=== PATIENT | female | born 1960 | race Caucasian/White ===

== ENCOUNTER 2016-05-15 13:23 | Inpatient (IN) | payer MEDICAID, OTHER ==
[2016-05-15] MEDS ORDERED: Adenosine 6 MG/2 ML SDV ONE (13:46)
[2016-05-15] MEDS ORDERED: Diltiazem 25 MG/5 ML SDV ONE (14:00)
[2016-05-15] MEDS ORDERED: Diltiazem 25 MG/5 ML SDV IVPUSH ONE (14:00)
[2016-05-15] MEDS ORDERED: Lactated Ringers 1,000 ML IV ONE (14:05)
--- NOTE | 2016-05-15 14:21 | EDM.PDOC ---
ED HISTORY OF PRESENT ILLNESS - General Chief Complaint: Cardiovascular Problem Stated Complaint: DIZZY AND SWEATY/LIGHTHEADED Time Seen by Provider: 05/15/16 14:05 Source of Information: Reports: Patient History Limitations: Reports: No limitations - History of Present Illness INITIAL COMMENTS - FREE TEXT/NARRATIVE: Daisy is a 56 yo female who presents to the ER with complaints of dizziness and lightheaded. States she had a headache last night when she went to bed and when she woke up this morning she was feeling well. Had a 1/2 cup of coffee around 11:00am, which is a typical day for her. States around 1:00pm she started to get lightheaded and didn't feel right. Admits she had a heart arrythmia about 9 years ago that was similar to current episode. States while sitting in the ER she doesn't feel as lightheaded but it is still present. States she doesn't have any chest pain or palpitations in her chest. Has been otherwise feeling well. Did have the flu about a month ago but hasn't had any symptoms since. States she is under a lot of stress currently taking care of 5 grandchildren. States she doesn't take any stimulants but is trying to lose weight. Was smoking 3 packs of cigarettes per day and is now down to 3 cigarettes total in a day. States she has a poor diet and understands she needs to change this. Has cut back on her eating but still admits she isn't eating a clean diet. Symptom Onset Date: 05/15/16 Symptom Onset Time: 13:00 Timing/Duration: Reports: Improving, Intermittent Location, General: Reports: generalized - Related Data Allergies/ADRs: Allergies Allergy/AdvReac Type Severity Reaction Status Date / Time bupropion [From Wellbutrin] Allergy Rash Verified 05/15/16 13:48 codeine Allergy Chest Pain Verified 05/15/16 13:48 Penicillins Allergy Rash Verified 05/15/16 13:48 Home Meds: Home Meds Aspirin 650 mg PO DAILY 05/15/16 [History] Past Medical History Cardiovascular History: Reports: Arrhythmia, High cholesterol Respiratory History: Reports: Asthma, COPD (mild), Pneumonia, recurrent Gastrointestinal History: Reports: None Genitourinary History: Reports: None Musculoskeletal History: Reports: Osteoarthritis, RA - Past Surgical History GI Surgical History: Reports: Appendectomy, Cholecystectomy, Hernia, abdominal Female Surgical History: Reports: section Social & Family History - Tobacco Use Smoking Status *Q: Current Every Day Smoker Tobacco Use Within Last Twelve Months: Cigarettes - Alcohol Use Alcohol Use History: Yes Alcohol Use in Last Twelve Months: No - Recreational Drug Use Recreational Drug Use: No ED ROS GENERAL - Review of Systems Review Of Systems: See Below Constitutional: Reports: no symptoms HEENT: Reports: No symptoms Respiratory: Reports: no symptoms. Denies: shortness of breath, wheezing Cardiovascular: Reports: Lightheadedness. Denies: Chest pain, Blood pressure problem, Edema, Palpitations, Syncope GI/Abdominal: Reports: No symptoms : Reports: no symptoms Skin: Reports: no symptoms Neurological: Reports: dizziness, headache, weakness. Denies: seizure Psychiatric: Reports: Anxiety Hematologic/Lymphatic: Reports: no symptoms ED EXAM, GENERAL - Physical Exam Exam: See Below Exam Limited By: No limitations General Appearance: alert, anxious, mild distress Ears: normal external exam, normal canal, hearing grossly normal, normal TMs Nose: normal inspection, normal mucosa, no blood Throat/Mouth: Normal inspection, Normal lips, Normal teeth, Normal gums, Normal oropharynx, Normal voice, No airway compromise Head: atraumatic, normocephalic Neck: normal inspection, supple Respiratory/Chest: no respiratory distress, lungs clear, no accessory muscle use Cardiovascular: no edema, no JVD, no murmur, irregularly irregular GI/Abdominal: normal bowel sounds, soft, non tender, no organomegaly, no abnormal bruit, no mass Extremities: normal inspection, no pedal edema, normal capillary refill Neurological: alert, oriented, normal cognition, no motor/sensory deficits Psychiatric: normal affect, normal mood, anxious Skin Exam: Warm, Dry, Intact, Normal color, No rash EKG INTERPRETATION EKG Date: 05/15/16 Rhythm: a-fib Course - Vital Signs Last Recorded V/S: Last Vital Signs Temp 97.4 F 05/15/16 13:53 Pulse 111 H 05/15/16 14:32 Resp 20 05/15/16 13:53 BP 132/81 05/15/16 14:32 Pulse Ox 98 05/15/16 13:53 - Orders/Labs/Meds Orders: Active Orders 24 hr Category Date Time Status Patient Status Manage Transfer [TRANSFER] Routine ADT 02/22/17 14:45 Ordered Echo Comp wo Cont [US] Stat Exams 05/15/16 15:17 Ordered TSH REFLEX TO FREE T4 [CHEM] Stat Lab 05/15/16 15:17 Ordered Diltiazem [Cardizem] 100 mg Med 05/15/16 14:30 Active Sodium Chloride 0.9% [Normal Saline] 100 ml IV TITRATE Resuscitation Status Routine Resus Stat 05/15/16 14:46 Ordered Medication Orders Diltiazem HCl 100 mg/ Sodium (Chloride) 100 mls @ 5 mls/hr IV TITRATE RIA; 5 MG /HR PRN Reason: Protocol Last Admin: 05/15/16 14:32 Dose: 5 mls/hr Labs: Laboratory Tests 05/15/16 05/15/16 05/15/16 Range/Units 14:05 14:05 14:05 WBC 5.5 (5.0-10.0) 10^3/uL RBC 5.16 (4.00-5.50) 10^6/uL Hgb 14.8 (12.0-16.0) g/dL Hct 44.1 (37.0-47.0) % MCV 85.5 (82.0-94.0) fL MCH 28.7 (27.0-32.0) pg MCHC 33.6 (33.0-38.0) g/dL RDW Coeff of Dalia 13.8 (11.0-15.0) % Plt Count 317 (150-400) 10^3/uL Neut % (Auto) 42.0 (35-85) % Lymph % (Auto) 41.8 (10-55) % Dodge % (Auto) 10.0 (0-16) % Eos % (Auto) 5.3 H (0-5) % Baso % (Auto) 0.9 (0-3) % Neut # 2.30 (1.80-7.00) 10^3/uL Lymph # 2.29 (1.00-4.80) 10^3/uL Dodge # 0.55 (0.00-0.80) 10^3/uL Eos # 0.29 (0.00-0.45) 10^3/uL Baso # 0.05 10^3/uL PT 9.9 (9.7-12.3) SEC INR 0.94 (0.92-1.18) APTT 28.0 (20.0-45.0) SEC D-Dimer, Quantitative 0.51 H (0.00-0.50) Sodium 141 (136-145) mEq/L Potassium 3.8 (3.5-5.0) mEq/L Chloride 105 (98-106) mEq/L Carbon Dioxide 24 (21-32) mmol/L BUN 21 H (7-18) mg/dL Creatinine 0.9 (0.6-1.0) mg/dL Est Cr Clr Drug Dosing 63.78 mL/min Estimated GFR (MDRD) > 60 (>=60) mL/min Glucose 130 H (75-99) mg/dL Calcium 8.9 (8.4-10.1) mg/dL Total Bilirubin 0.3 (0.0-1.0) mg/dL AST 13 L (15-37) U/L ALT 21 (12-78) U/L Alkaline Phosphatase 78 (46-116) U/L Lactate Dehydrogenase 74 L (100-190) U/L Creatine Kinase 46 (21-215) U/L Troponin I < 0.017 (0.00-0.06) ng/mL Total Protein 7.1 (6.4-8.2) g/dL Albumin 3.4 (3.4-5.0) g/dL Meds: Medications Generic Name Dose Route Start Last Admin Trade Name Freq PRN Reason Stop Dose Admin Diltiazem HCl 100 mg/ Sodium 100 mls @ 5 mls/hr 05/15/16 14:30 05/15/16 14:32 Chloride IV 5 mls/hr TITRATE RIA Administration Protocol 5 MG/HR Discontinued Medications Generic Name Dose Route Start Last Admin Trade Name Freq PRN Reason Stop Dose Admin Adenosine Confirm 05/15/16 13:46 05/15/16 14:34 Adenocard Administered 05/15/16 13:47 Not Given Dose 6 mg .ROUTE .STK-MED ONE Diltiazem HCl Confirm 05/15/16 14:00 05/15/16 14:34 Diltiazem Administered 05/15/16 14:01 Not Given Dose 25 mg .ROUTE .STK-MED ONE Diltiazem HCl 5 mg 05/15/16 14:00 Diltiazem IVPUSH 05/15/16 14:01 ONETIME ONE Lactated Ringer's 1,000 mls @ 999 mls/hr 05/15/16 14:05 05/15/16 14:35 Ringers, Lactated IV 05/15/16 15:05 999 mls/hr .BOLUS ONE Administration Departure - Departure Time of Disposition: 15:00 Disposition: Admitted As Inpatient 64 Clinical Impression: Atrial fibrillation by electrocardiogram, Paroxysmal SVT (supraventricular tachycardia) Forms: ED Department Discharge - Problem List & Annotations (1) Atrial fibrillation by electrocardiogram SNOMED Code(s): 162416082 Code(s): I48.91 - UNSPECIFIED ATRIAL FIBRILLATION Status: Acute Current Visit: Yes (2) Paroxysmal SVT (supraventricular tachycardia) SNOMED Code(s): 67798920 Code(s): I47.1 - SUPRAVENTRICULAR TACHYCARDIA Status: Acute Current Visit : Yes - Problem List Review Problem List Initiated/Reviewed/Updated: Yes - My Orders Last 24 Hours: My Active Orders 05/15/16 14:30 Diltiazem [Cardizem] 100 mg Sodium Chloride 0.9% [Normal Saline] 100 ml IV TITRATE 05/15/16 14:45 Patient Status Manage Transfer [TRANSFER] Routine 05/15/16 14:46 Resuscitation Status Routine 05/15/16 15:17 Echo Comp wo Cont [US] Stat TSH REFLEX TO FREE T4 [CHEM] Stat - Assessment/Plan Admission H&P: Please use this note as an admission H&P Last 24 Hours: My Active Orders 05/15/16 14:30 Diltiazem [Cardizem] 100 mg Sodium Chloride 0.9% [Normal Saline] 100 ml IV TITRATE 05/15/16 14:45 Patient Status Manage Transfer [TRANSFER] Routine 05/15/16 14:46 Resuscitation Status Routine 05/15/16 15:17 Echo Comp wo Cont [US] Stat TSH REFLEX TO FREE T4 [CHEM] Stat Plan: Initially patient appeared to be in paroxysmal svt and would convert to NSR on her own. Elected to start Diltiazem bolus, 5mg with recurrent SVT. Started Diltiazem drip with repeat EKG which showed Atrial Fibrillation with RVR. Consulted with Dr. Alcocer and will admit to Dr. Alcocer's services under acute care. Will proceed with further workup to include echo and thyroid tests. Daisy admitted the lightheadedness had mostly subsided. She was in agreement with admission.
[2016-05-15 14:23] LABS: CHLORIDE,CL 105 mEq/L (98-106); SODIUM,NA 141 mEq/L (136-145)
[2016-05-15] MEDS ORDERED: Diltiazem 100 MG in Sodium Chloride 0.9% 100 ML IV SCH (14:30)
[2016-05-15] MEDS ORDERED: Acetaminophen 325 MG Tab PO PRN (15:37)
[2016-05-15] MEDS ORDERED: Sodium Chloride 0.9% 500 ML IV SCH (17:00)
[2016-05-15] MEDS: Enoxaparin 40 MG/0.4 ML Syringe SUBCUT SCH (17:25)
[2016-05-15] MEDS ORDERED: Digoxin 500 MCG/2 ML Amp IVPUSH SCH ×2 (20:00→21:55)
[2016-05-15] MEDS: Sodium Chloride 0.9% 500 ML ONE ×2 (20:15→22:55)
[2016-05-16] MEDS: Digoxin 500 MCG/2 ML Amp IVPUSH SCH ×4 (02:05→19:38)
[2016-05-16] MEDS: Aspirin 325 MG Tab.EC PO SCH (08:11)
[2016-05-16] MEDS: Diltiazem 180 MG Cap.CD PO SCH (09:51)
[2016-05-16] MEDS: Enoxaparin 40 MG/0.4 ML Syringe SUBCUT SCH (12:04)
[2016-05-17] MEDS: Digoxin 500 MCG/2 ML Amp IVPUSH SCH ×2 (02:02→07:55)
[2016-05-17] MEDS: Aspirin 325 MG Tab.EC PO SCH (07:55)
[2016-05-17] MEDS: Diltiazem 180 MG Cap.CD PO SCH (07:55)
[2016-05-17 08:31] VITALS: BP 107/76
--- NOTE | 2016-05-17 13:05 | PCM.PN ---
- General Info Date of Service: 05/16/16 Admission Dx/Problem (Free Text): Atrial Fib with RVR Functional Status: Reports: pain controlled, tolerating diet. Denies: ambulating - Review of Systems General: Reports: weakness. Denies: fever, fatigue HEENT: Denies: ear pain, sinus congestion, rhinitis Pulmonary: Denies: shortness of breath, cough, wheezing Cardiovascular: Reports: palpitations. Denies: chest pain, edema, lightheadedness Gastrointestinal: Denies: Abdominal pain, Constipation, Diarrhea, Nausea, Vomiting Genitourinary: Reports: no symptoms Musculoskeletal: Reports: no symptoms Skin: Reports: no symptoms Neurological: Reports: no symptoms Psychiatric: Reports: no symptoms - Patient Data Vitals - most recent: Last Vital Signs Temp 98.6 F 05/17/16 08:30 Pulse 75 05/17/16 08:30 Resp 14 05/17/16 08:30 BP 107/76 05/17/16 08:30 Pulse Ox 94 L 05/17/16 08:30 Weight - most recent: 226 lb 1.6 oz I&O - last 24 hours: Intake & Output 05/16/16 05/17/16 05/17/16 22:59 06:59 14:59 Intake Total 480 750 Output Total 1400 Balance -920 750 Med Orders - Current: Current Medications Discontinued Medications Acetaminophen (Tylenol) 650 mg PO Q4H PRN PRN Reason: Pain (Mild 1-3)/fever Adenosine (Adenocard) Confirm Administered Dose 6 mg .ROUTE .STK-MED ONE Stop: 05/15/16 13:47 Last Admin: 05/15/16 14:34 Dose: Not Given Aspirin (Ecotrin) 650 mg PO DAILY [facility] Last Admin: 05/17/16 07:55 Dose: 650 mg Digoxin (Lanoxin) 250 mcg IVPUSH Q6H [facility] Stop: 05/16/16 02:01 Last Admin: 05/15/16 20:14 Dose: 250 mcg Digoxin (Lanoxin) 250 mcg IVPUSH Q6H [facility] Stop: 05/16/16 02:01 Last Admin: 05/15/16 22:23 Dose: Not Given Digoxin (Lanoxin) 250 mcg IVPUSH Q6H [facility] Last Admin: 05/17/16 07:55 Dose: 250 mcg Diltiazem HCl (Diltiazem) Confirm Administered Dose 25 mg .ROUTE .STK-MED ONE Stop: 05/15/16 14:01 Last Admin: 05/15/16 14:34 Dose: Not Given Diltiazem HCl (Diltiazem) 5 mg IVPUSH ONETIME ONE Stop: 05/15/16 14:01 Last Admin: 05/15/16 14:00 Dose: 5 mg Diltiazem HCl (Cardizem Cd) 180 mg PO DAILY RIA Last Admin: 05/17/16 07:55 Dose: 180 mg Enoxaparin Sodium (Lovenox) 40 mg SUBCUT Q24H RIA Last Admin: 05/16/16 12:04 Dose: 40 mg Lactated Ringer's (Ringers, Lactated) 1,000 mls @ 999 mls/hr IV .BOLUS ONE Stop: 05/15/16 15:05 Last Admin: 05/15/16 14:35 Dose: 999 mls/hr Diltiazem HCl 100 mg/ Sodium (Chloride) 100 mls @ 5 mls/hr IV TITRATE RIA; 5 MG /HR PRN Reason: Protocol Last Admin: 05/15/16 14:32 Dose: 5 mls/hr Sodium Chloride (Normal Saline) Confirm Administered Dose 500 mls @ as directed .ROUTE .STK-MED ONE Stop: 05/15/16 18:42 Last Admin: 05/15/16 22:55 Dose: Not Given Sodium Chloride (Normal Saline) 500 mls @ 30 mls/hr IV ASDIRECTED RIA Last Infusion: 05/16/16 03:45 Dose: 30 mls/hr - Exam Quality Assessment: No: supplemental oxygen General: alert, oriented HEENT: Mucous membr. moist/pink Neck: supple Lungs: Clear to auscultation, Normal respiratory effort Cardiovascular: irregular rhythm, tachycardia Abdomen: bowel sounds present, soft, no tenderness Extremities: no edema Skin: warm, dry Neurological: no new focal deficit Psy/Mental Status: alert, normal affect, normal mood - Problem List & Annotations (1) Atrial fibrillation by electrocardiogram SNOMED Code(s): 427429132 Code(s): I48.91 - UNSPECIFIED ATRIAL FIBRILLATION Status: Acute - Problem List Review Problem List Initiated/Reviewed/Updated: Yes - My Orders Last 24 Hours: My Active Orders 05/17/16 08:17 Ready for Discharge [RC] PER UNIT ROUTINE - Assessment Assessment:: Atrial Fib with RVR - Plan Plan:: 05-16-2016 Patient states does have palpitations at times but not causing her any discomfort. She denies feeling lightheaded or having any headaches. Heart rate has continued to be tachycardic. Did start Digoxin last evening in addition to Cardizem IV drip. Heart rate does fluctuate at times. Converts to NSR for short periods of time. Relatively asymptomatic through this. Labs on admit all stable Will start Cardizem CD this am. Continue digoxin. Hold the drip and see how she does through the day. Will need to be set up to see Cardiology in [place] when able.
--- NOTE | 2016-05-17 15:16 | PCM.DCSUM1 ---
Discharge Summary - Hospital Course Free Text/Narrative:: Patient admitted by Chiki Correa from ER with Atrial Fib with RVR. Patient presented with palpitations to the ER. No chest pain or shortness of breath. Admitted to being lightheaded that day. Had been under a great deal of stress related to taking care of 5 grandchildren and thought the palpitations were related. She did have a heart arrhythmia 9 years ago but currently is not on any treatment for it. Cardiac work up was done in the ER. Initially felt to be SVT so was given Adenosine. Follow up EKG did show Atrial fib so Cardizem IV was given. Cardiac enzymes normal - Discharge Data Discharge Date: 05/17/16 Discharge Disposition: Home, Self-Care 01 Condition: Good - Discharge Diagnosis/Problem(s) (1) Atrial fibrillation by electrocardiogram SNOMED Code(s): 800502557 ICD Code: I48.91 - UNSPECIFIED ATRIAL FIBRILLATION Status: Acute - Patient Summary/Data Complications: Did have difficulty getting rate under control initially with just Cardizem drip so patient was started on IV Digoxin as well. Finally converted to a normal rate with atrial fib at 24 hours or so. Today has converted to a NSR. Hospital Course: Patient has been relatively asymptomatic during stay. Does have mild palpitations at times, lightheadedness has improved. Blood pressure was low at times with the Cardizem drip. As we were unable to increase her Cardizem drip over 10 mg, we did dig load her. Patient did start showing improvement of her heart rate about 18 hours after admission after start Cardizem oral and continuing the IV Digoxin. Today, she is in NSR with a rate of 72. Feels good. No further lightheadedness. No palpitations. Tolerating activity well. No complaints today other than stiffness from her RA - Patient Instructions Diet: Heart Healthy Diet Activity: As Tolerated - Discharge Plan Prescriptions/Med Rec: Diltiazem [Cardizem CD] 240 mg PO DAILY #30 cap.cd Rivaroxaban [Xarelto] 20 mg PO DAILY #30 tablet Home Medications: Home Meds Aspirin 650 mg PO DAILY 05/15/16 [History] Diltiazem [Cardizem CD] 240 mg PO DAILY #30 cap.cd 05/17/16 [Rx] Rivaroxaban [Xarelto] 20 mg PO DAILY #30 tablet 05/17/16 [Rx] Forms: ED Department Discharge Referrals: Carloz Alcocer MD [Primary Care Provider] - (Dr. Alcocer in one week ) - Discharge Summary/Plan Comment DC Time >30 min.: No Discharge Summary/Plan Comment: Patient discharged home. Will start Xarelto 20 mg daily. Cardizem CD 240 mg daily. Will arrange for a cardiology consult for the patient. Follow up with Dr. Alcocer in one week as well. - General Info Date of Service: 05/17/16 Admission Dx/Problem (Free Text: Atrial Fib with RVR Functional Status: Reports: pain controlled, tolerating diet, ambulating - Review of Systems General: Denies: fever, weakness, fatigue HEENT: Reports: no symptoms Pulmonary: Denies: shortness of breath Cardiovascular: Denies: chest pain, palpitations, lightheadedness Gastrointestinal: Denies: Abdominal pain, Nausea, Vomiting Genitourinary: Reports: no symptoms Musculoskeletal: Reports: no symptoms Skin: Reports: no symptoms - Patient Data Vitals - Most Recent: Last Vital Signs Temp 98.6 F 05/17/16 08:30 Pulse 75 05/17/16 08:30 Resp 14 05/17/16 08:30 BP 107/76 05/17/16 08:30 Pulse Ox 94 L 05/17/16 08:30 Weight - Most Recent: 226 lb 1.6 oz I&O - Last 24 hours: Intake & Output 05/17/16 05/17/16 05/17/16 06:59 14:59 22:59 Intake Total 750 Balance 750 Med Orders - Current: Current Medications Discontinued Medications Acetaminophen (Tylenol) 650 mg PO Q4H PRN PRN Reason: Pain (Mild 1-3)/fever Adenosine (Adenocard) Confirm Administered Dose 6 mg .ROUTE .STK-MED ONE Stop: 05/15/16 13:47 Last Admin: 05/15/16 14:34 Dose: Not Given Aspirin (Ecotrin) 650 mg PO DAILY [facility] Last Admin: 05/17/16 07:55 Dose: 650 mg Digoxin (Lanoxin) 250 mcg IVPUSH Q6H [facility] Stop: 05/16/16 02:01 Last Admin: 05/15/16 20:14 Dose: 250 mcg Digoxin (Lanoxin) 250 mcg IVPUSH Q6H [facility] Stop: 05/16/16 02:01 Last Admin: 05/15/16 22:23 Dose: Not Given Digoxin (Lanoxin) 250 mcg IVPUSH Q6H [facility]IA Last Admin: 05/17/16 07:55 Dose: 250 mcg Diltiazem HCl (Diltiazem) Confirm Administered Dose 25 mg .ROUTE .STK-MED ONE Stop: 05/15/16 14:01 Last Admin: 05/15/16 14:34 Dose: Not Given Diltiazem HCl (Diltiazem) 5 mg IVPUSH ONETIME ONE Stop: 05/15/16 14:01 Last Admin: 05/15/16 14:00 Dose: 5 mg Diltiazem HCl (Cardizem Cd) 180 mg PO DAILY [facility] Last Admin: 05/17/16 07:55 Dose: 180 mg Enoxaparin Sodium (Lovenox) 40 mg SUBCUT Q24H [facility] Last Admin: 05/16/16 12:04 Dose: 40 mg Lactated Ringer's (Ringers, Lactated) 1,000 mls @ 999 mls/hr IV .BOLUS ONE Stop: 05/15/16 15:05 Last Admin: 05/15/16 14:35 Dose: 999 mls/hr Diltiazem HCl 100 mg/ Sodium (Chloride) 100 mls @ 5 mls/hr IV TITRATE RIA; 5 MG /HR PRN Reason: Protocol Last Admin: 05/15/16 14:32 Dose: 5 mls/hr Sodium Chloride (Normal Saline) Confirm Administered Dose 500 mls @ as directed .ROUTE .STK-MED ONE Stop: 05/15/16 18:42 Last Admin: 05/15/16 22:55 Dose: Not Given Sodium Chloride (Normal Saline) 500 mls @ 30 mls/hr IV ASDIRECTED [facility] Last Infusion: 05/16/16 03:45 Dose: 30 mls/hr - Exam General: Reports: alert, oriented HEENT: Reports: Mucous membr. moist/pink Neck: Reports: supple Lungs: Reports: Clear to auscultation, Normal respiratory effort Cardiovascular: Reports: regular rate, regular rhythm Abdomen: Reports: bowel sounds present, soft, no tenderness *Q Meaningful Use (DIS) - VTE *Q VTE Criteria *Q: - Stroke *Q Stroke Criteria *Q: - AMI *Q AMI Criteria *Q:
== END 2016-05-17 11:00 | disposition home or self-care (01) | DRG 310 ==
LOC: CC.ED 13:23 → UNDOADMIN 14:46 → CC.MS 14:46 → UNDOADMIN 15:22 → CC.MS 15:37
PROVIDERS: ADMIT Physician Assistant Medical; ATTEND Family Medicine
DX: I48.91 Unspecified atrial fibrillation (principal); I47.1 Supraventricular tachycardia; R51 Headache; Z79.82 Long term (current) use of aspirin; F17.210 Nicotine dependence, cigarettes, uncomplicated; R42 Dizziness and giddiness; E78.00 Pure hypercholesterolemia, unspecified; J44.9 Chronic obstructive pulmonary disease, unspecified; M19.90 Unspecified osteoarthritis, unspecified site; M06.9 Rheumatoid arthritis, unspecified; F41.9 Anxiety disorder, unspecified
CPT/HCPCS: 36415; 80053; 82550; 83615; 84443; 84484; 85025; 85379; 85610; 85730; 93005; 93306; 96374; 99285; A9270-GY; J1160; J1650; J3490; J7040; J7050; J7120

== ENCOUNTER 2016-05-30 14:32 | Emergency (ER) | payer MEDICAID, OTHER ==
[2016-05-30 14:43] VITALS: BP 139/89
--- NOTE | 2016-05-30 15:15 | EDM.PDOC ---
ED HPI DIZZINESS - General Chief Complaint: Syncope Stated Complaint: DIZZY Time Seen by Provider: 05/30/16 15:00 Source of Information: Reports: Patient Exam Limitations: Reports: No limitations - History of Present Illness INITIAL COMMENTS - FREE TEXT/NARRATIVE: Patient presents to ER with complaints of dizziness. States hasn't really felt good since being in the hospital for atrial fib and starting on new medications. Relates that she doesn't sleep well due to her RA and it is even worse now. Feels so tired all the time. Was in to see Dr. Alcocer on Friday and switched from ASA and Zarelto to Coumadin. Was supposed to have her blood work done yesterday "but we were so busy at home". States she gets spells where she moves her head and feels so dizzy. Has not passed out. Feels the rooms spins at times. No chest pain. Has not noted any palpitations. Timing/Duration: Reports: Day(s): Baseline Function: Reports: ambulatory Quality: Reports: spinning Severity: moderate Improves With: Reports: laying down Worsens With: Reports: head movement Context, Dizziness: Reports: new medications Associated Symptoms: Reports: off balance Treatments SEED BUYER: Reports: Other medication(s) Other Treatments SEED BUYER: cardizem and coumadin - Related Data Allergies/ADRs: Allergies Allergy/AdvReac Type Severity Reaction Status Date / Time bupropion [From Wellbutrin] Allergy Rash Verified 05/30/16 14:43 codeine Allergy Chest Pain Verified 05/30/16 14:43 Penicillins Allergy Rash Verified 05/30/16 14:43 Home Meds: Home Meds Diltiazem [Cardizem CD] 240 mg PO DAILY #30 cap.cd 05/17/16 [Rx] Warfarin [Coumadin] 5 mg PO BEDTIME 05/30/16 [History] Past Medical History Cardiovascular History: Reports: Afib, Arrhythmia, High cholesterol Respiratory History: Reports: Asthma, COPD, Pneumonia, recurrent Gastrointestinal History: Reports: None Genitourinary History: Reports: None Musculoskeletal History: Reports: Osteoarthritis, RA Neurological History: Reports: Concussion Psychiatric History: Reports: Depression, Panic attack Endocrine/Metabolic History: Reports: Other (see below) Other Endocrine/Metabolic History: prediabetic Oncologic (Cancer) History: Reports: Cervix - Past Surgical History GI Surgical History: Reports: Appendectomy, Cholecystectomy, Hernia, abdominal Female Surgical History: Reports: section Social & Family History - Tobacco Use Smoking Status *Q: Current Some Day Smoker Years of Tobacco use: 40 Packs/Tins Daily: 0.2 - Caffeine Use Caffeine Use: Reports: None - Recreational Drug Use Recreational Drug Use: No ED ROS GENERAL - Review of Systems Review Of Systems: See Below Constitutional: Reports: malaise, weakness, fatigue. Denies: fever, chills, diaphoresis, decreased appetite HEENT: Reports: Vertigo. Denies: Ear pain, Rhinitis, Sinus problem, Throat pain , Vision change Respiratory: Denies: shortness of breath, wheezing, cough Cardiovascular: Reports: Lightheadedness. Denies: Chest pain, Edema Endocrine: Reports: fatigue GI/Abdominal: Denies: Abdominal pain, Constipation, Diarrhea, Nausea, Vomiting : Reports: no symptoms Musculoskeletal: Reports: no symptoms Skin: Reports: no symptoms Neurological: Reports: weakness ED EXAM, DIZZINESS - Physical Exam Exam: See Below Exam Limited By: No limitations General Appearance: alert, WD/WN, no apparent distress Ears: normal external exam, normal TMs Nose: normal inspection, normal mucosa, no blood Throat/Mouth: Normal inspection, Normal oropharynx Head Exam: normocephalic Vertigo: short duration Neck: normal inspection, supple, non-tender Respiratory/Chest: no respiratory distress, decreased breath sounds Cardiovascular: normal peripheral pulses, regular rate, rhythm, other (trace edema) GI/Abdominal: normal bowel sounds, soft, non tender Neurological: alert, normal mood/affect Psychiatric: normal affect, normal mood Skin Exam: Warm, Dry Course - Vital Signs Last Recorded V/S: Last Vital Signs Temp 98 F 05/30/16 14:37 Pulse 80 05/30/16 14:37 Resp 20 05/30/16 14:37 BP 139/89 05/30/16 14:37 Pulse Ox 96 05/30/16 14:37 - Orders/Labs/Meds Labs: Laboratory Tests 05/30/16 05/30/16 05/30/16 Range/Units 15:15 15:15 15:15 WBC 5.9 (5.0-10.0) 10^3/uL RBC 4.88 (4.00-5.50) 10^6/uL Hgb 14.1 (12.0-16.0) g/dL Hct 43.2 (37.0-47.0) % MCV 88.5 (82.0-94.0) fL MCH 28.9 (27.0-32.0) pg MCHC 32.6 L (33.0-38.0) g/dL RDW Coeff of Dalia 13.9 (11.0-15.0) % Plt Count 281 (150-400) 10^3/uL Neut % (Auto) 52.6 (35-85) % Lymph % (Auto) 32.8 (10-55) % [place] % (Auto) 7.6 (0-16) % Eos % (Auto) 6.3 H (0-5) % Baso % (Auto) 0.7 (0-3) % Neut # 3.11 (1.80-7.00) 10^3/uL Lymph # 1.94 (1.00-4.80) 10^3/uL [place] # 0.45 (0.00-0.80) 10^3/uL Eos # 0.37 (0.00-0.45) 10^3/uL Baso # 0.04 10^3/uL PT 12.0 (9.7-12.3) SEC INR 1.13 (0.92-1.18) Sodium 145 (136-145) mEq/L Potassium 4.0 (3.5-5.0) mEq/L Chloride 107 H (98-106) mEq/L Carbon Dioxide 30 (21-32) mmol/L BUN 15 (7-18) mg/dL Creatinine 0.7 (0.6-1.0) mg/dL Est Cr Clr Drug Dosing 82.01 mL/min Estimated GFR (MDRD) > 60 (>=60) mL/min Glucose 114 H (75-99) mg/dL Calcium 8.8 (8.4-10.1) mg/dL Lactate Dehydrogenase 89 L (100-190) U/L Creatine Kinase 39 (21-215) U/L Troponin I < 0.017 (0.00-0.06) ng/mL Urine Color (YELLOW) Urine Appearance (CLEAR) Urine pH (4.5-8.0) Ur Specific [place] (1.003-1.020) Urine Protein (NEGATIVE) mg/dL Urine Glucose (UA) (NEGATIVE) mg/dL Urine Ketones (NEGATIVE) mg/dL Urine Occult Blood (NEGATIVE) Urine Nitrite (NEGATIVE) Urine Bilirubin (NEGATIVE) Urine Urobilinogen (0.2-1.0) EU/dL Ur Leukocyte Esterase (NEGATIVE) Urine RBC (0-5) /HPF Urine WBC (0-5) /HPF Ur Epithelial Cells (NOT SEEN) /HPF Urine Bacteria (NOT SEEN) /HPF Urine Mucus (NOT SEEN) /HPF 05/30/16 Range/Units 15:15 WBC (5.0-10.0) 10^3/uL RBC (4.00-5.50) 10^6/uL Hgb (12.0-16.0) g/dL Hct (37.0-47.0) % MCV (82.0-94.0) fL MCH (27.0-32.0) pg MCHC (33.0-38.0) g/dL RDW Coeff of Dalia (11.0-15.0) % Plt Count (150-400) 10^3/uL Neut % (Auto) (35-85) % Lymph % (Auto) (10-55) % [place] % (Auto) (0-16) % Eos % (Auto) (0-5) % Baso % (Auto) (0-3) % Neut # (1.80-7.00) 10^3/uL Lymph # (1.00-4.80) 10^3/uL [place] # (0.00-0.80) 10^3/uL Eos # (0.00-0.45) 10^3/uL Baso # 10^3/uL PT (9.7-12.3) SEC INR (0.92-1.18) Sodium (136-145) mEq/L Potassium (3.5-5.0) mEq/L Chloride (98-106) mEq/L Carbon Dioxide (21-32) mmol/L BUN (7-18) mg/dL Creatinine (0.6-1.0) mg/dL Est Cr Clr Drug Dosing mL/min Estimated GFR (MDRD) (>=60) mL/min Glucose (75-99) mg/dL Calcium (8.4-10.1) mg/dL Lactate Dehydrogenase (100-190) U/L Creatine Kinase (21-215) U/L Troponin I (0.00-0.06) ng/mL Urine Color Yellow (YELLOW) Urine Appearance Clear (CLEAR) Urine pH 5.0 (4.5-8.0) Ur Specific [place] 1.021 H (1.003-1.020) Urine Protein Trace H (NEGATIVE) mg/dL Urine Glucose (UA) Negative (NEGATIVE) mg/dL Urine Ketones Negative (NEGATIVE) mg/dL Urine Occult Blood Small H (NEGATIVE) Urine Nitrite Negative (NEGATIVE) Urine Bilirubin Negative (NEGATIVE) Urine Urobilinogen 0.2 (0.2-1.0) EU/dL Ur Leukocyte Esterase Small H (NEGATIVE) Urine RBC 0-5 (0-5) /HPF Urine WBC 5-10 H (0-5) /HPF Ur Epithelial Cells Moderate H (NOT SEEN) /HPF Urine Bacteria Moderate H (NOT SEEN) /HPF Urine Mucus Few H (NOT SEEN) /HPF Departure - Departure Time of Disposition: 15:55 Disposition: Home, Self-Care 01 Condition: good Clinical Impression: UTI (urinary tract infection), Dehydration Referrals: Carloz Alcocer MD [Primary Care Provider] - Forms: ED Department Discharge Additional Instructions: 1. Rest 2. Push fluids 3. Continue same dose of Coumadin and recheck INR on Friday 4. Ceftin 250 mg twice a day for 10 days 5. Continue Cardizem 6. Follow up if any ongoing concerns.
[2016-05-30 15:35] LABS: CHLORIDE,CL 107 mEq/L (98-106); SODIUM,NA 145 mEq/L (136-145)
== END 2016-05-30 16:07 | disposition home or self-care (01) ==
LOC: CC.ED 14:32
DX: N39.0 Urinary tract infection, site not specified (principal); E86.0 Dehydration; I48.91 Unspecified atrial fibrillation; E78.00 Pure hypercholesterolemia, unspecified; J45.909 Unspecified asthma, uncomplicated; J44.9 Chronic obstructive pulmonary disease, unspecified; M19.90 Unspecified osteoarthritis, unspecified site; Z79.01 Long term (current) use of anticoagulants; F32.9 Major depressive disorder, single episode, unspecified; Z88.0 Allergy status to penicillin; Z88.5 Allergy status to narcotic agent; Z88.8 Allergy status to other drugs, medicaments and biological substances; Z90.49 Acquired absence of other specified parts of digestive tract
CPT/HCPCS: 36415; 80048; 81001; 82550; 83615; 84484; 85025; 85610; 93005; 99284

== ENCOUNTER 2018-03-04 17:13 | Emergency (ER) | payer MEDICAID ==
[2018-03-04] MEDS ORDERED: Aspirin 81 MG Tab.Chew PO ONE (17:33)
[2018-03-04] MEDS ORDERED: Diltiazem 100 MG AdvVial ONE (17:54)
[2018-03-04 17:55] LABS: CHLORIDE,CL 105 mEq/L (98-106); SODIUM,NA 141 mEq/L (136-145)
[2018-03-04] MEDS ORDERED: Diltiazem 25 MG/5 ML SDV IVPUSH ONE (18:04)
[2018-03-04] MEDS ORDERED: Diltiazem IR 30 MG Tab PO ONE (18:07)
[2018-03-04] MEDS ORDERED: Diltiazem 100 MG in Sodium Chloride 0.9% 100 ML IV SCH (18:15)
[2018-03-04] MEDS ORDERED: Sodium Chloride 0.9% 100 ML ONE (18:18)
--- NOTE | 2018-03-04 18:22 | EDM.PDOC ---
ED HPI GENERAL MEDICAL PROBLEM - General Chief Complaint: General Stated Complaint: PALPITATIONS Time Seen by Provider: 03/04/18 17:40 Source of Information: Reports: Patient History Limitations: Reports: No Limitations - History of Present Illness INITIAL COMMENTS - FREE TEXT/NARRATIVE: Patient presents with palpitations. Has not been feeling well all day today, did not sleep well last night. Heart feels like it is racing. Denies any chest pain. Has no increased shortness of breath. No nausea. Has a history of paroxysmal atrial fib. Has been dealing with hip pain so thought she wasn't sleeping well due to that but feels now more related to her heart history. Has been taking her Cardizem and Coumadin as directed. On presentation, EKG was done immediately. Did show STEMI with inferior infarct. Life flight notified. On my presentation, patient is without pain. No shortness of breath. Did fax EKG to [facility] and awaited cardiology input. Rate 160. Labs have been drawn. Onset: Today, Gradual Duration: Hour(s):, Constant Location: Reports: Generalized Severity: Mild Improves with: Reports: Rest Associated Symptoms: Reports: Malaise, Weakness. Denies: Chest Pain, Cough, Loss of Appetite, Nausea/Vomiting, Shortness of Breath - Related Data Allergies Allergy/AdvReac Type Severity Reaction Status Date / Time bupropion [From Wellbutrin] Allergy Rash Verified 03/04/18 17:52 codeine Allergy Chest Pain Verified 03/04/18 17:52 Penicillins Allergy Rash Verified 03/04/18 17:52 Home Meds: Home Meds Diltiazem [Cardizem CD] 240 mg PO DAILY #30 cap.cd 05/17/16 [Rx] Warfarin [Coumadin] 5 mg PO BEDTIME 05/30/16 [History] Past Medical History Cardiovascular History: Reports: Afib, Arrhythmia, High Cholesterol Respiratory History: Reports: Asthma, COPD, Pneumonia, Recurrent Gastrointestinal History: Reports: None Genitourinary History: Reports: None Musculoskeletal History: Reports: Osteoarthritis, RA Neurological History: Reports: Concussion Psychiatric History: Reports: Depression, Panic Attack Endocrine/Metabolic History: Reports: Other (See Below) Other Endocrine/Metabolic History: prediabetic Oncologic (Cancer) History: Reports: Cervix - Past Surgical History GI Surgical History: Reports: Appendectomy, Cholecystectomy, Hernia, Abdominal Female Surgical History: Reports: Section Social & Family History - Family History Family Medical History: Noncontributory - Tobacco Use Smoking Status *Q: Current Every Day Smoker Years of Tobacco use: 25 Packs/Tins Daily: 0.5 - Caffeine Use Caffeine Use: Reports: None - Recreational Drug Use Recreational Drug Use: No ED ROS GENERAL - Review of Systems Review Of Systems: See Below Constitutional: Reports: Malaise, Weakness, Fatigue. Denies: Fever, Chills, Diaphoresis, Decreased Appetite HEENT: Reports: No Symptoms Respiratory: Reports: Cough. Denies: Shortness of Breath Cardiovascular: Reports: Edema. Denies: Chest Pain, Lightheadedness Endocrine: Reports: Fatigue GI/Abdominal: Denies: Abdominal Pain, Nausea, Vomiting : Reports: No Symptoms Musculoskeletal: Reports: No Symptoms Skin: Reports: No Symptoms Neurological: Reports: No Symptoms ED EXAM, GENERAL - Physical Exam Exam: See Below Exam Limited By: No Limitations General Appearance: Alert, WD/WN, No Apparent Distress Ears: Normal External Exam, Normal TMs Nose: Normal Inspection, Normal Mucosa, No Blood Throat/Mouth: Normal Inspection, Normal Oropharynx Head: Normocephalic Neck: Normal Inspection, Supple, Non-Tender Respiratory/Chest: No Respiratory Distress, Lungs Clear Cardiovascular: Regular Rate, Rhythm, Tachycardia, Irregularly Irregular, Other (rhythm is variable. Is going in and out of atrial fib/flutter.) GI/Abdominal: Normal Bowel Sounds, Soft, Non-Tender Extremities: Pedal Edema (1+ edema in ankles) Neurological: Alert, Oriented Skin Exam: Warm, Dry Course - Vital Signs Last Recorded V/S: Last Vital Signs Temp 99.4 F 03/04/18 18:37 Pulse 85 03/04/18 18:37 Resp 20 03/04/18 18:37 BP 135/86 03/04/18 18:37 Pulse Ox 94 L 03/04/18 18:37 - Orders/Labs/Meds Orders: Active Orders 24 hr Category Date Time Status EKG Documentation Completion [RC] STAT Care 03/04/18 17:29 Active Chest 2V [CR] Stat Exams 03/04/18 17:27 Taken Labs: Laboratory Tests 03/04/18 03/04/18 03/04/18 Range/Units 17:27 17:35 17:35 WBC 6.9 (5.0-10.0) 10^3/uL RBC 5.34 (4.00-5.50) 10^6/uL Hgb 15.7 (12.0-16.0) g/dL Hct 47.7 H (37.0-47.0) % MCV 89.3 (82.0-94.0) fL MCH 29.4 (27.0-32.0) pg MCHC 32.9 L (33.0-38.0) g/dL RDW Coeff of Dalia 15.4 H (11.0-15.0) % Plt Count 307 (150-400) 10^3/uL Neut % (Auto) 53.5 (35-85) % Lymph % (Auto) 33.1 (10-55) % [place] % (Auto) 9.0 (0-16) % Eos % (Auto) 3.8 (0-5) % Baso % (Auto) 0.6 (0-3) % Neut # (Auto) 3.71 (1.80-7.00) 10^3/uL Lymph # (Auto) 2.29 (1.00-4.80) 10^3/uL [place] # (Auto) 0.62 (0.00-0.80) 10^3/uL Eos # (Auto) 0.26 (0.00-0.45) 10^3/uL Baso # (Auto) 0.04 10^3/uL PT 21.6 H (9.7-12.3) SEC INR 2.20 H (0.92-1.18) Sodium 141 (136-145) mEq/L Potassium 3.9 (3.5-5.0) mEq/L Chloride 105 (98-106) mEq/L Carbon Dioxide 26 (21-32) mmol/L BUN 24 H (7-18) mg/dL Creatinine 0.9 (0.6-1.0) mg/dL Est Cr Clr Drug Dosing 59.81 mL/min Estimated GFR (MDRD) > 60 (>=60) mL/min Glucose 116 H (75-99) mg/dL Calcium 8.6 (8.4-10.1) mg/dL Lactate Dehydrogenase 88 L (100-190) U/L Creatine Kinase 37 (21-215) U/L Troponin I < 0.017 (0.00-0.06) ng/mL Meds: Medications Discontinued Medications Generic Name Dose Route Start Last Admin Trade Name Domingo PRN Reason Stop Dose Admin Aspirin 324 mg 03/04/18 17:33 03/04/18 17:34 Aspirin PO 03/04/18 17:34 324 mg ONETIME ONE Administration Diltiazem HCl 10 mg 03/04/18 18:04 03/04/18 18:57 Diltiazem IVPUSH 03/04/18 18:05 Not Given ONETIME ONE Diltiazem HCl Confirm 03/04/18 17:54 03/04/18 18:40 Cardizem Administered 03/04/18 17:55 Not Given Dose 100 mg .ROUTE .STK-MED ONE Diltiazem HCl 60 mg 03/04/18 18:07 03/04/18 18:18 Cardizem PO 03/04/18 18:08 60 mg ONETIME ONE Administration Diltiazem HCl 100 mg/ Sodium 100 mls @ 5 mls/hr 03/04/18 18:15 03/04/18 18:39 Chloride IV 5 mg/hr TITRATE RIA 5 mls/hr Administration Protocol 5 MG/HR Sodium Chloride Confirm 03/04/18 18:18 03/04/18 18:40 Normal Saline Administered 03/04/18 18:19 Not Given Dose 100 mls @ as directed .ROUTE .STK-MED ONE - Re-Assessments/Exams Free Text/Narrative Re-Assessment/Exam: 03/04/18 1745 Quick exam of the patient and EKG reviewed and faxed to [facility] for review as indicates inferior [place]. 1800- spoke with Dr. Horton, kiln head house operator at [facility]. Feels EKG indicates more atrial flutter with rapid ventricular response. Troponins now back and are negative as well and she has been feeling ill throughout the day. Advised Cardizem 60 mg oral and start IV Cardizem drip per protocol. Is anticoagulated with INR at 2.20. Patient aware that life flight is enroute due to initial EKG read. Is aware of the risks of flight including worsening status, , and vehicular crash. Benefits of transfer include more definitive cardiac care as consideration for ablation to be done tomorrow. Risks of non transfer include worsening status and possible . Benefits of non transfer include care close to home. Agrees to transfer to [facility]. Also spoke with Dr. Houston, hospitalist and update on status given. 1814 Patient stable, vitals normal. 1829- Telemetry rhythm now appears more atrial fib at times. Repeat EKG confirms. Does vary back and forth between atrial fib and flutter with rate between 100-160. 1899- Life flight here, report given. Departure - Departure Time of Disposition: 19:00 Disposition: DC/Tfer to Acute Hospital 02 Condition: Fair Clinical Impression: Atrial fibrillation by electrocardiogram, Atrial flutter - Discharge Information Referrals: Carloz Alcocer MD [Primary Care Provider] - Forms: ED Department Discharge Additional Instructions: Transfer Life Flight to Dr. Houston - My Orders Last 24 Hours: My Active Orders 03/04/18 17:27 Chest 2V [CR] Stat 03/04/18 17:29 EKG Documentation Completion [RC] STAT - Assessment/Plan Last 24 Hours: My Active Orders 03/04/18 17:27 Chest 2V [CR] Stat 03/04/18 17:29 EKG Documentation Completion [RC] STAT
[2018-03-04 18:38] VITALS: BP 135/86
== END 2018-03-04 19:00 ==
LOC: CC.ED 17:13
DX: I48.91 Unspecified atrial fibrillation (principal); I48.92 Unspecified atrial flutter; Z88.0 Allergy status to penicillin; Z88.5 Allergy status to narcotic agent; F17.210 Nicotine dependence, cigarettes, uncomplicated; Z79.01 Long term (current) use of anticoagulants
CPT/HCPCS: 36415; 71046; 80048; 82550; 83615; 84484; 85025; 85610; 93005; 99285; A9270; J3490; J7050

== ENCOUNTER 2018-05-05 00:58 | Inpatient (IN) | payer MEDICAID ==
--- NOTE | 2018-05-05 01:42 | EDM.PDOC ---
ED HPI GENERAL MEDICAL PROBLEM - General Chief Complaint: Respiratory Problem Stated Complaint: "not feeling well" Time Seen by Provider: 05/05/18 01:30 Source of Information: Reports: Patient History Limitations: Reports: No Limitations - History of Present Illness INITIAL COMMENTS - FREE TEXT/NARRATIVE: Daisy is a 58 yo female who presents to the ED via private vehicle with concerns of not feeling well. She states symptoms started on Friday and she thought she was coming down with a cold. She admits she has been using her inhaler (Xopenex) frequently but recently ran out of it. She states initial symptoms were a runny nose. States symptoms have progressively worsened over the weekend to include shortness of breath, fever and body aches. She states she was around her grandchildren last week Friday, just over a week ago, and they were sick with colds. She admits she isn't sure if any relevance. She states she does smoke about a half pack per day. She has been trying to take Tylenol for the fevers and lost dose was roughly 3 1/2 hours ago. She has a history of atrial fibrillation and is currently on Coumadin. She admits she was diagnosed a few months ago and was having palpitations then, denies any palpitations presently. States she did get the influenza vaccine this year. Duration: Getting Worse Location: Reports: Chest Associated Symptoms: Reports: Cough, Fever/Chills, Headaches, Shortness of Breath. Denies: Chest Pain, Nausea/Vomiting, Rash Treatments CONTROLLED AREA CHECKER: Reports: Breathing Treatments (xopenex inhaler) - Related Data Allergies Allergy/AdvReac Type Severity Reaction Status Date / Time bupropion [From Wellbutrin] Allergy Rash Verified 05/05/18 01:01 codeine Allergy Chest Pain Verified 05/05/18 01:01 Penicillins Allergy Rash Verified 05/05/18 01:01 Home Meds: Home Meds Diltiazem [Cardizem CD] 240 mg PO DAILY #30 cap.cd 05/17/16 [Rx] Warfarin [Coumadin] 5 mg PO BEDTIME 05/30/16 [History] Furosemide [Lasix] 10 mg PO DAILY 05/05/18 [History] Levalbuterol Tartrate [Xopenex Hfa] 1 inh INH Q4H PRN 05/05/18 [History] Past Medical History Cardiovascular History: Reports: Afib, Arrhythmia, High Cholesterol Respiratory History: Reports: Asthma, COPD, Pneumonia, Recurrent Gastrointestinal History: Reports: None Genitourinary History: Reports: None Musculoskeletal History: Reports: Osteoarthritis, RA Neurological History: Reports: Concussion Psychiatric History: Reports: Depression, Panic Attack Endocrine/Metabolic History: Reports: Other (See Below) Other Endocrine/Metabolic History: prediabetic Oncologic (Cancer) History: Reports: Cervix - Past Surgical History GI Surgical History: Reports: Appendectomy, Cholecystectomy, Hernia, Abdominal Female Surgical History: Reports: Section, Hysterectomy Musculoskeletal Surgical History: Reports: Hip Replacement Other Musculoskeletal Surgeries/Procedures:: L) hip replacement Social & Family History - Family History Family Medical History: Noncontributory - Tobacco Use Smoking Status *Q: Current Every Day Smoker Years of Tobacco use: 16 Packs/Tins Daily: 0.5 - Caffeine Use Caffeine Use: Reports: None - Recreational Drug Use Recreational Drug Use: No ED ROS GENERAL - Review of Systems Review Of Systems: See Below Constitutional: Reports: Fever, Chills HEENT: Reports: Rhinitis, Throat Pain. Denies: Ear Pain Respiratory: Reports: Shortness of Breath, Wheezing, Cough Cardiovascular: Denies: Chest Pain GI/Abdominal: Reports: No Symptoms : Reports: No Symptoms Skin: Reports: No Symptoms Neurological: Reports: No Symptoms Psychiatric: Reports: Anxiety ED EXAM, GENERAL - Physical Exam Exam: See Below Exam Limited By: No Limitations General Appearance: Alert, Mild Distress Eye Exam: Bilateral Eye: Normal Inspection Ears: Normal External Exam, Normal Canal, Hearing Grossly Normal, Normal TMs Nose: Normal Inspection, Normal Mucosa, No Blood Throat/Mouth: Normal Inspection, Normal Lips, Normal Gums, Normal Oropharynx, Normal Voice, No Airway Compromise Head: Atraumatic, Normocephalic Neck: Normal Inspection, Supple Respiratory/Chest: Decreased Breath Sounds, Wheezing. No: Retractions Cardiovascular: No Edema, No Murmur, Tachycardia, Irregularly Irregular GI/Abdominal: Normal Bowel Sounds, Soft, Non-Tender, No Organomegaly Extremities: Normal Inspection, No Pedal Edema Neurological: Alert Psychiatric: Anxious EKG INTERPRETATION EKG Date: 05/05/18 Rhythm: A-Fib Rate (Beats/Min): 125 Course - Vital Signs Last Recorded V/S: Last Vital Signs Temp 102.1 F H 05/05/18 00:58 Pulse 127 H 05/05/18 00:58 Resp 22 H 05/05/18 00:58 BP 132/51 L 05/05/18 00:58 Pulse Ox 91 L 05/05/18 01:45 - Orders/Labs/Meds Orders: Active Orders 24 hr Category Date Time Status Oxygen Therapy [RC] ASDIRECTED Care 05/05/18 01:45 Active Chest 2V [CR] Stat Exams 05/05/18 01:08 Ordered CULTURE BLOOD [BC] Stat Lab 05/05/18 01:20 Received CULTURE BLOOD [BC] Stat Lab 05/05/18 01:30 Received Blood Culture x2 Reflex Set [OM.PC] Stat Oth 05/05/18 01:08 Ordered EKG 12 Lead [EK] Routine Ther 05/05/18 01:32 Ordered Labs: Laboratory Tests 05/05/18 05/05/18 05/05/18 Range/Units 01:30 01:30 01:30 WBC 9.2 (5.0-10.0) 10^3/uL RBC 5.26 (4.00-5.50) 10^6/uL Hgb 15.4 (12.0-16.0) g/dL Hct 46.7 (37.0-47.0) % MCV 88.8 (82.0-94.0) fL MCH 29.3 (27.0-32.0) pg MCHC 33.0 (33.0-38.0) g/dL RDW Coeff of Dalia 14.6 (11.0-15.0) % Plt Count 194 (150-400) 10^3/uL Neut % (Auto) 84.1 (35-85) % Lymph % (Auto) 10.3 (10-55) % [place] % (Auto) 5.5 (0-16) % Eos % (Auto) 0 (0-5) % Baso % (Auto) 0.1 (0-3) % Neut # (Auto) 7.72 H (1.80-7.00) 10^3/uL Lymph # (Auto) 0.94 L (1.00-4.80) 10^3/uL [place] # (Auto) 0.50 (0.00-0.80) 10^3/uL Eos # (Auto) 0.00 (0.00-0.45) 10^3/uL Baso # (Auto) 0.01 10^3/uL PT 22.9 H (9.7-12.3) SEC INR 2.35 H (0.92-1.18) Sodium 141 (136-145) mEq/L Potassium 3.7 (3.5-5.0) mEq/L Chloride 101 (98-106) mEq/L Carbon Dioxide 28 (21-32) mmol/L BUN 17 (7-18) mg/dL Creatinine 1.2 H (0.6-1.0) mg/dL Est Cr Clr Drug Dosing 46.67 mL/min Estimated GFR (MDRD) 46 L (>=60) mL/min Glucose 167 H D (75-99) mg/dL Calcium 8.8 (8.4-10.1) mg/dL Creatine Kinase 148 (21-215) U/L Troponin I < 0.017 (0.00-0.06) ng/mL C-Reactive Protein 10.9 H (0.2-0.8) mg/dL Departure - Departure Time of Disposition: 02:10 Disposition: Admitted As Inpatient 66 Clinical Impression: COPD exacerbation Community acquired pneumonia Qualifiers: Laterality: unspecified laterality Qualified Code(s): J18.9 - Pneumonia, unspecified organism - Discharge Information Forms: ED Department Discharge - Problem List & Annotations (1) COPD exacerbation SNOMED Code(s): 141904855 Code(s): J44.1 - CHRONIC OBSTRUCTIVE PULMONARY DISEASE W (ACUTE) EXACERBATION Status: Acute Current Visit: Yes (2) Community acquired pneumonia SNOMED Code(s): 735969318 Code(s): J18.9 - PNEUMONIA, UNSPECIFIED ORGANISM Status: Acute Current Visit: Yes Qualifiers: Laterality: unspecified laterality Qualified Code(s): J18.9 - Pneumonia, unspecified organism (3) Atrial fibrillation with RVR SNOMED Code(s): 485661926070212 Code(s): I48.91 - UNSPECIFIED ATRIAL FIBRILLATION Status: Acute Current Visit: Yes - My Orders Last 24 Hours: My Active Orders 05/05/18 01:08 Chest 2V [CR] Stat Blood Culture x2 Reflex Set [OM.PC] Stat 05/05/18 01:20 CULTURE BLOOD [BC] Stat 05/05/18 01:30 CULTURE BLOOD [BC] Stat 05/05/18 01:32 EKG 12 Lead [EK] Routine 05/05/18 01:45 Oxygen Therapy [RC] ASDIRECTED - Assessment/Plan Admission H&P: Please use this note as an admission H&P Last 24 Hours: My Active Orders 05/05/18 01:08 Chest 2V [CR] Stat Blood Culture x2 Reflex Set [OM.PC] Stat 05/05/18 01:20 CULTURE BLOOD [BC] Stat 05/05/18 01:30 CULTURE BLOOD [BC] Stat 05/05/18 01:32 EKG 12 Lead [EK] Routine 05/05/18 01:45 Oxygen Therapy [RC] ASDIRECTED Plan: Influenza was negative. CRP was elevated at 10.9. WBC high end of normal with neutrophils slightly elevated. Will admit to Dr. Monsivais services under acute care. EKG did show ongoing A. Fib with RVR at 125 bpm. Blood cultures pending. INR is 2.35. Cardiac enzymes negative. Will place on Telemetry. Will initiate IV antibiotics.
[2018-05-05 01:50] LABS: CHLORIDE,CL 101 mEq/L (98-106); SODIUM,NA 141 mEq/L (136-145)
[2018-05-05] MEDS ORDERED: Ibuprofen 200 MG Tab PO PRN (02:42)
[2018-05-05] MEDS ORDERED: Levalbuterol HCl 1.25 MG/3 ML Neb INH PRN (02:42)
[2018-05-05] MEDS ORDERED: Diltiazem 120 MG Cap.CD PO ONE ×2 (02:42→19:38)
[2018-05-05] MEDS ORDERED: Levalbuterol HCl 1.25 MG/3 ML Neb NEB PRN (02:42)
[2018-05-05] MEDS ORDERED: Levofloxacin/Dextrose 5%-Water 500 MG in Premix Bag 1 BAG IV SCH (03:00)
[2018-05-05] MEDS ORDERED: methylPREDNISolone Sodium Succinate 125 MG/2 ML SDV IVPUSH SCH (03:00)
[2018-05-05] MEDS: Sodium Chloride 0.9% 1,000 ML IV SCH ×3 (03:01→19:58)
[2018-05-05] MEDS: Acetaminophen 325 MG Tab PO PRN ×4 (03:01→23:37)
[2018-05-05] MEDS: Diltiazem 120 MG Cap.CD PO SCH (07:46)
[2018-05-05] MEDS: Furosemide 20 MG Tab PO SCH (07:47)
[2018-05-05] MEDS: Ipratropium 0.02% 0.5 MG/2.5 ML Neb Soln NEB SCH ×3 (11:49→19:58)
[2018-05-05] MEDS: Levalbuterol HCl 1.25 MG/3 ML Neb NEB SCH ×3 (11:49→20:00)
[2018-05-05] MEDS: Warfarin 5 MG Tab PO SCH (11:49)
[2018-05-05] MEDS: methylPREDNISolone Sodium Succinate 125 MG/2 ML SDV IVPUSH SCH (19:59)
[2018-05-06] MEDS: guaiFENesin 100 MG/5 ML Soln 5 ML UD Cup PO PRN ×2 (02:53→23:14)
[2018-05-06] MEDS: Sodium Chloride 0.9% 1,000 ML IV SCH (04:04)
[2018-05-06 07:22] LABS: CHLORIDE,CL 109 mEq/L (98-106); SODIUM,NA 144 mEq/L (136-145)
[2018-05-06] MEDS: Diltiazem 120 MG Cap.CD PO SCH (08:08)
[2018-05-06] MEDS: Furosemide 20 MG Tab PO SCH (08:08)
[2018-05-06] MEDS: Levalbuterol HCl 1.25 MG/3 ML Neb NEB SCH ×4 (08:09→20:06)
[2018-05-06] MEDS: Ipratropium 0.02% 0.5 MG/2.5 ML Neb Soln NEB SCH ×4 (08:09→20:05)
[2018-05-06] MEDS: Levofloxacin/Dextrose 5%-Water 500 MG in Premix Bag 1 BAG IV SCH (08:10)
[2018-05-06] MEDS: methylPREDNISolone Sodium Succinate 125 MG/2 ML SDV IVPUSH SCH ×2 (08:13→20:05)
[2018-05-06] MEDS: Acetaminophen 325 MG Tab PO PRN (09:47)
--- NOTE | 2018-05-06 18:29 | PCM.PN ---
- General Info Date of Service: 05/06/18 Admission Dx/Problem (Free Text): CAP Functional Status: Reports: Pain Controlled, Tolerating Diet. Denies: Ambulating - Review of Systems General: Reports: Weakness, Fatigue, Malaise. Denies: Fever HEENT: Reports: Rhinitis. Denies: Ear Pain, Sinus Congestion Pulmonary: Reports: Shortness of Breath, Cough, Wheezing Cardiovascular: Denies: Chest Pain, Edema, Lightheadedness Gastrointestinal: Denies: Abdominal Pain, Nausea, Vomiting Genitourinary: Reports: No Symptoms Musculoskeletal: Reports: No Symptoms Skin: Reports: No Symptoms Neurological: Reports: Headache, Weakness - Patient Data Vitals - Most Recent: Last Vital Signs Temp 98.7 F 05/06/18 16:00 Pulse 114 H 05/06/18 16:00 Resp 18 05/06/18 16:00 BP 121/70 05/06/18 16:00 Pulse Ox 92 L 05/06/18 16:00 Weight - Most Recent: 248 lb 9.6 oz I&O - Last 24 Hours: Intake & Output 05/06/18 05/06/18 05/06/18 06:59 14:59 22:59 Intake Total 1000 Balance 1000 Lab Results Last 24 Hours: Laboratory Results - last 24 hr 05/05/18 05/06/18 05/06/18 Range/Units 20:07 07:04 07:04 WBC 9.4 (5.0-10.0) 10^3/uL RBC 4.42 (4.00-5.50) 10^6/uL Hgb 13.0 (12.0-16.0) g/dL Hct 40.4 (37.0-47.0) % MCV 91.4 (82.0-94.0) fL MCH 29.4 (27.0-32.0) pg MCHC 32.2 L (33.0-38.0) g/dL RDW Coeff of Dalai 14.7 (11.0-15.0) % Plt Count 160 (150-400) 10^3/uL Neut % (Auto) 89.7 H (35-85) % Lymph % (Auto) 7.4 L (10-55) % [place] % (Auto) 2.8 (0-16) % Eos % (Auto) 0 (0-5) % Baso % (Auto) 0.1 (0-3) % Neut # (Auto) 8.45 H (1.80-7.00) 10^3/uL Lymph # (Auto) 0.70 L (1.00-4.80) 10^3/uL [place] # (Auto) 0.26 (0.00-0.80) 10^3/uL Eos # (Auto) 0.00 (0.00-0.45) 10^3/uL Baso # (Auto) 0.01 10^3/uL PT 37.2 H (9.7-12.3) SEC INR 3.96 H (0.92-1.18) Sodium (136-145) mEq/L Potassium (3.5-5.0) mEq/L Chloride (98-106) mEq/L Carbon Dioxide (21-32) mmol/L BUN (7-18) mg/dL Creatinine (0.6-1.0) mg/dL Est Cr Clr Drug Dosing mL/min Estimated GFR (MDRD) (>=60) mL/min Glucose (75-99) mg/dL POC Glucose 220 H (75-105) mg/dl Calcium (8.4-10.1) mg/dL C-Reactive Protein (0.2-0.8) mg/dL 05/06/18 05/06/18 Range/Units 07:04 07:23 WBC (5.0-10.0) 10^3/uL RBC (4.00-5.50) 10^6/uL Hgb (12.0-16.0) g/dL Hct (37.0-47.0) % MCV (82.0-94.0) fL MCH (27.0-32.0) pg MCHC (33.0-38.0) g/dL RDW Coeff of Dalia (11.0-15.0) % Plt Count (150-400) 10^3/uL Neut % (Auto) (35-85) % Lymph % (Auto) (10-55) % [place] % (Auto) (0-16) % Eos % (Auto) (0-5) % Baso % (Auto) (0-3) % Neut # (Auto) (1.80-7.00) 10^3/uL Lymph # (Auto) (1.00-4.80) 10^3/uL [place] # (Auto) (0.00-0.80) 10^3/uL Eos # (Auto) (0.00-0.45) 10^3/uL Baso # (Auto) 10^3/uL PT (9.7-12.3) SEC INR (0.92-1.18) Sodium 144 (136-145) mEq/L Potassium 4.6 D (3.5-5.0) mEq/L Chloride 109 H (98-106) mEq/L Carbon Dioxide 30 (21-32) mmol/L BUN 16 (7-18) mg/dL Creatinine 0.7 (0.6-1.0) mg/dL Est Cr Clr Drug Dosing 80.01 mL/min Estimated GFR (MDRD) > 60 (>=60) mL/min Glucose 193 H (75-99) mg/dL POC Glucose 179 H (75-105) mg/dl Calcium 8.3 L (8.4-10.1) mg/dL C-Reactive Protein 14.5 H (0.2-0.8) mg/dL Noel Results Last 24 Hours: Microbiology 05/05/18 04:38 Gram Stain - Preliminary Sputum - Expectorated Sputum Culture - Preliminary 05/05/18 01:20 Aerobic Blood Culture - Preliminary Blood - Venous NO GROWTH AFTER 1 DAY Anaerobic Blood Culture - Preliminary NO GROWTH AFTER 1 DAY 05/05/18 01:30 Aerobic Blood Culture - Preliminary Blood - Venous - Lab Draw NO GROWTH AFTER 1 DAY Anaerobic Blood Culture - Preliminary NO GROWTH AFTER 1 DAY Med Orders - Current: Current Medications Acetaminophen (Tylenol) 650 mg PO Q4H PRN PRN Reason: Pain (Mild 1-3)/fever Last Admin: 05/06/18 09:47 Dose: 650 mg Diltiazem HCl (Cardizem Cd) 240 mg PO DAILY [facility] Last Admin: 05/06/18 08:08 Dose: 240 mg Furosemide (Lasix) 10 mg PO DAILY [facility] Last Admin: 05/06/18 08:08 Dose: 10 mg Guaifenesin (Robitussin) 100 mg PO Q6H PRN PRN Reason: Cough Last Admin: 05/06/18 02:53 Dose: 100 mg Sodium Chloride (Normal Saline) 1,000 mls @ 125 mls/hr IV ASDIRECTED RIA Last Admin: 05/06/18 04:04 Dose: 125 mls/hr Levofloxacin/Dextrose 500 mg/ (Premix) 100 mls @ 100 mls/hr IV Q24H [facility] Last Admin: 05/06/18 08:10 Dose: 100 mls/hr Ibuprofen (Motrin) 400 mg PO Q6H PRN PRN Reason: Pain (mild 1-3) Ipratropium [place] (Atrovent) 0.5 mg NEB QID [facility] Last Admin: 05/06/18 16:33 Dose: 0.5 mg Levalbuterol HCl (Xopenex) 1.25 mg NEB Q4H PRN PRN Reason: Shortness of Breath Levalbuterol HCl (Xopenex) 1.25 mg NEB QID [facility] Last Admin: 05/06/18 16:33 Dose: 1.25 mg Methylprednisolone Sodium Succinate (Solu-Medrol) 62.5 mg IVPUSH BID [facility] Last Admin: 05/06/18 08:13 Dose: 62.5 mg Warfarin Sodium (Coumadin) 5 mg PO DAILY@1200 [facility] Last Admin: 05/05/18 11:49 Dose: 5 mg Discontinued Medications Diltiazem HCl (Cardizem Cd) 120 mg PO ONETIME ONE Stop: 05/05/18 02:43 Last Admin: 05/05/18 03:01 Dose: 120 mg Diltiazem HCl (Cardizem Cd) 120 mg PO ONETIME ONE Stop: 05/05/18 19:39 Last Admin: 05/05/18 19:58 Dose: 120 mg Levofloxacin/Dextrose 500 mg/ (Premix) 100 mls @ 100 mls/hr IV Q24H [facility] Last Admin: 05/05/18 03:01 Dose: 100 mls/hr Levalbuterol HCl (Xopenex) 1.25 mg INH Q4H PRN PRN Reason: Shortness of Breath Last Admin: 05/05/18 08:53 Dose: 1.25 mg Methylprednisolone Sodium Succinate (Solu-Medrol) 62.5 mg IVPUSH Q12H [facility] Last Admin: 05/05/18 03:01 Dose: 62.5 mg - Exam Quality Assessment: Supplemental Oxygen General: Alert, Oriented HEENT: Mucous Membr. Moist/[place] Neck: Supple Lungs: Decreased Breath Sounds, Wheezing Cardiovascular: Irregular Rhythm, Tachycardia GI/Abdominal Exam: Normal Bowel Sounds, Soft, Non-Tender Extremities: Normal Inspection, No Pedal Edema Skin: Warm, Dry Neurological: No New Focal Deficit - Problem List & Annotations (1) Atrial fibrillation with RVR SNOMED Code(s): 876572208272389 Code(s): I48.91 - UNSPECIFIED ATRIAL FIBRILLATION Status: Acute Priority : High Current Visit: Yes (2) COPD exacerbation SNOMED Code(s): 347175595 Code(s): J44.1 - CHRONIC OBSTRUCTIVE PULMONARY DISEASE W (ACUTE) EXACERBATION Status: Acute Priority: High Current Visit: Yes (3) Community acquired pneumonia SNOMED Code(s): 229296447 Code(s): J18.9 - PNEUMONIA, UNSPECIFIED ORGANISM Status: Ruled-out Current Visit: Yes Qualifiers: Laterality: unspecified laterality Qualified Code(s): J18.9 - Pneumonia, unspecified organism (4) Acute bronchitis SNOMED Code(s): 17204275 Code(s): J20.9 - ACUTE BRONCHITIS, UNSPECIFIED Status: Acute Current Visit: Yes - Problem List Review Problem List Initiated/Reviewed/Updated: Yes - My Orders Last 24 Hours: My Active Orders 05/06/18 02:47 guaiFENesin [Robitussin] 100 mg PO Q6H PRN - Assessment Assessment:: COPD Exacerbation Acute Bronchitis Atrial Fib with RVR Ruled out pneumonia - Plan Plan:: 05-06-2018 Patient starting to feel somewhat better. Still gets short of breath with exertion. Does feel better after Xopenex treatments but her heart rate increases with this and activity. Tolerates that well. Chest xray report shows no abnormality, sputum is normal francisco. Pneumonia ruled out. Does continue to require oxygen, 96% at 2 liters. Afebrile. WBC 9.4. CRP improved slightly to 14.5. INR has increased to 3.96. Will continue to give nebs as she does see more air exchange with these but cautiously watch her heart rate. Is currently on Cardizem 240 mg CD for this. Will attempt to wean off oxygen today. Ambulate in halls. Hold Coumadin. Continue IV Levaquin and Solu Medrol. Repeat labs in am.
[2018-05-07 07:35] LABS: CHLORIDE,CL 107 mEq/L (98-106); SODIUM,NA 146 mEq/L (136-145)
[2018-05-07] MEDS: Ipratropium 0.02% 0.5 MG/2.5 ML Neb Soln NEB SCH ×4 (08:02→20:12)
[2018-05-07] MEDS: Levalbuterol HCl 1.25 MG/3 ML Neb NEB SCH ×4 (08:02→20:12)
[2018-05-07] MEDS: Diltiazem 120 MG Cap.CD PO SCH (08:04)
[2018-05-07] MEDS: Furosemide 20 MG Tab PO SCH (08:05)
[2018-05-07] MEDS: methylPREDNISolone Sodium Succinate 125 MG/2 ML SDV IVPUSH SCH ×2 (08:06→20:10)
[2018-05-07] MEDS: Levofloxacin/Dextrose 5%-Water 500 MG in Premix Bag 1 BAG IV SCH (08:08)
[2018-05-07] MEDS: Acetaminophen 325 MG Tab PO PRN (08:11)
--- NOTE | 2018-05-07 15:12 | PCM.PN ---
- General Info Date of Service: 05/07/18 Admission Dx/Problem (Free Text): CAP Functional Status: Reports: Pain Controlled, Tolerating Diet. Denies: Ambulating - Review of Systems General: Reports: Weakness, Fatigue HEENT: Reports: Sinus Congestion, Rhinitis Pulmonary: Reports: Shortness of Breath, Cough, Sputum, Wheezing Cardiovascular: Reports: Edema. Denies: Chest Pain, Lightheadedness Gastrointestinal: Denies: Abdominal Pain, Nausea, Vomiting Genitourinary: Reports: No Symptoms Musculoskeletal: Reports: No Symptoms Skin: Reports: No Symptoms Neurological: Reports: Weakness - Patient Data Vitals - Most Recent: Last Vital Signs Temp 98.1 F 05/07/18 12:00 Pulse 134 H 05/07/18 12:00 Resp 20 05/07/18 12:00 BP 105/55 L 05/07/18 12:00 Pulse Ox 99 05/07/18 12:00 Weight - Most Recent: 248 lb 9.6 oz Lab Results Last 24 Hours: Laboratory Results - last 24 hr 05/06/18 05/07/18 05/07/18 Range/Units 20:35 07:10 07:10 WBC 10.2 H (5.0-10.0) 10^3/uL RBC 4.55 (4.00-5.50) 10^6/uL Hgb 13.3 (12.0-16.0) g/dL Hct 41.4 (37.0-47.0) % MCV 91.0 (82.0-94.0) fL MCH 29.2 (27.0-32.0) pg MCHC 32.1 L (33.0-38.0) g/dL RDW Coeff of Dalia 15.2 H (11.0-15.0) % Plt Count 220 (150-400) 10^3/uL Add Manual Diff Yes Neutrophils % (Manual) 78 (35-85) % Band Neutrophils % 8 H (0-5) % Lymphocytes % (Manual) 13 L (21-55) % Monocytes % (Manual) 1 L (2-12) % Eosinophils % (Manual) Health And Safety Manager Tear Drop Cells Health And Safety Manager PT 34.7 H (9.7-12.3) SEC INR 3.67 H (0.92-1.18) Sodium (136-145) mEq/L Potassium (3.5-5.0) mEq/L Chloride (98-106) mEq/L Carbon Dioxide (21-32) mmol/L BUN (7-18) mg/dL Creatinine (0.6-1.0) mg/dL Est Cr Clr Drug Dosing mL/min Estimated GFR (MDRD) (>=60) mL/min Glucose (75-99) mg/dL POC Glucose 216 H (75-105) mg/dl Calcium (8.4-10.1) mg/dL C-Reactive Protein (0.2-0.8) mg/dL 05/07/18 Range/Units 07:10 WBC (5.0-10.0) 10^3/uL RBC (4.00-5.50) 10^6/uL Hgb (12.0-16.0) g/dL Hct (37.0-47.0) % MCV (82.0-94.0) fL MCH (27.0-32.0) pg MCHC (33.0-38.0) g/dL RDW Coeff of Dalia (11.0-15.0) % Plt Count (150-400) 10^3/uL Add Manual Diff Neutrophils % (Manual) (35-85) % Band Neutrophils % (0-5) % Lymphocytes % (Manual) (21-55) % Monocytes % (Manual) (2-12) % Eosinophils % (Manual) Tear Drop Cells PT (9.7-12.3) SEC INR (0.92-1.18) Sodium 146 H (136-145) mEq/L Potassium 4.5 (3.5-5.0) mEq/L Chloride 107 H (98-106) mEq/L Carbon Dioxide 30 (21-32) mmol/L BUN 20 H (7-18) mg/dL Creatinine 0.7 (0.6-1.0) mg/dL Est Cr Clr Drug Dosing 80.01 mL/min Estimated GFR (MDRD) > 60 (>=60) mL/min Glucose 182 H (75-99) mg/dL POC Glucose (75-105) mg/dl Calcium 8.8 (8.4-10.1) mg/dL C-Reactive Protein 6.0 H (0.2-0.8) mg/dL Noel Results Last 24 Hours: Microbiology 05/05/18 04:38 Gram Stain - Preliminary Sputum - Expectorated Sputum Culture - Final Yeast Isolated 05/05/18 01:20 Aerobic Blood Culture - Preliminary Blood - Venous NO GROWTH AFTER 2 DAYS Anaerobic Blood Culture - Preliminary NO GROWTH AFTER 2 DAYS 05/05/18 01:30 Aerobic Blood Culture - Preliminary Blood - Venous - Lab Draw NO GROWTH AFTER 2 DAYS Anaerobic Blood Culture - Preliminary NO GROWTH AFTER 2 DAYS Med Orders - Current: Current Medications Acetaminophen (Tylenol) 650 mg PO Q4H PRN PRN Reason: Pain (Mild 1-3)/fever Last Admin: 05/07/18 08:11 Dose: 650 mg Diltiazem HCl (Cardizem Cd) 240 mg PO DAILY [facility] Last Admin: 05/07/18 08:04 Dose: 240 mg Furosemide (Lasix) 10 mg PO DAILY [facility] Last Admin: 05/07/18 08:05 Dose: 10 mg Guaifenesin (Robitussin) 100 mg PO Q6H PRN PRN Reason: Cough Last Admin: 05/06/18 23:14 Dose: 100 mg Sodium Chloride (Normal Saline) 1,000 mls @ 125 mls/hr IV ASDIRECTED [facility] Last Admin: 05/06/18 04:04 Dose: 125 mls/hr Levofloxacin/Dextrose 500 mg/ (Premix) 100 mls @ 100 mls/hr IV Q24H [facility] Last Admin: 05/07/18 08:08 Dose: 100 mls/hr Ibuprofen (Motrin) 400 mg PO Q6H PRN PRN Reason: Pain (mild 1-3) Ipratropium [place] (Atrovent) 0.5 mg NEB QID [facility] Last Admin: 05/07/18 11:54 Dose: 0.5 mg Levalbuterol HCl (Xopenex) 1.25 mg NEB Q4H PRN PRN Reason: Shortness of Breath Levalbuterol HCl (Xopenex) 1.25 mg NEB QID [facility] Last Admin: 05/07/18 11:54 Dose: 1.25 mg Methylprednisolone Sodium Succinate (Solu-Medrol) 62.5 mg IVPUSH BID [facility] Last Admin: 05/07/18 08:06 Dose: 62.5 mg Warfarin Sodium (Coumadin) 5 mg PO DAILY@1200 [facility] Last Admin: 05/05/18 11:49 Dose: 5 mg Discontinued Medications Diltiazem HCl (Cardizem Cd) 120 mg PO ONETIME ONE Stop: 05/05/18 02:43 Last Admin: 05/05/18 03:01 Dose: 120 mg Diltiazem HCl (Cardizem Cd) 120 mg PO ONETIME ONE Stop: 05/05/18 19:39 Last Admin: 05/05/18 19:58 Dose: 120 mg Levofloxacin/Dextrose 500 mg/ (Premix) 100 mls @ 100 mls/hr IV Q24H [facility] Last Admin: 05/05/18 03:01 Dose: 100 mls/hr Levalbuterol HCl (Xopenex) 1.25 mg INH Q4H PRN PRN Reason: Shortness of Breath Last Admin: 05/05/18 08:53 Dose: 1.25 mg Methylprednisolone Sodium Succinate (Solu-Medrol) 62.5 mg IVPUSH Q12H [facility] Last Admin: 05/05/18 03:01 Dose: 62.5 mg - Exam Quality Assessment: Supplemental Oxygen General: Alert, Oriented HEENT: Mucous Membr. Moist/[place] Neck: Supple Lungs: Decreased Breath Sounds, Wheezing Cardiovascular: Irregular Rhythm, Tachycardia GI/Abdominal Exam: Normal Bowel Sounds, Soft, Non-Tender Extremities: Normal Inspection, Pedal Edema (1+) Skin: Warm, Dry Neurological: No New Focal Deficit - Problem List & Annotations (1) Atrial fibrillation with RVR SNOMED Code(s): 705960441485559 Code(s): I48.91 - UNSPECIFIED ATRIAL FIBRILLATION Status: Acute Priority : High Current Visit: Yes (2) COPD exacerbation SNOMED Code(s): 677352553 Code(s): J44.1 - CHRONIC OBSTRUCTIVE PULMONARY DISEASE W (ACUTE) EXACERBATION Status: Acute Priority: High Current Visit: Yes (3) Community acquired pneumonia SNOMED Code(s): 544977350 Code(s): J18.9 - PNEUMONIA, UNSPECIFIED ORGANISM Status: Ruled-out Current Visit: Yes Qualifiers: Laterality: unspecified laterality Qualified Code(s): J18.9 - Pneumonia, unspecified organism (4) Acute bronchitis SNOMED Code(s): 35188246 Code(s): J20.9 - ACUTE BRONCHITIS, UNSPECIFIED Status: Acute Priority: High Current Visit: Yes - Problem List Review Problem List Initiated/Reviewed/Updated: Yes - Assessment Assessment:: COPD Exacerbation Acute Bronchitis Atrial Fib with RVR Ruled out pneumonia - Plan Plan:: 05-06-2018 Patient starting to feel somewhat better. Still gets short of breath with exertion. Does feel better after Xopenex treatments but her heart rate increases with this and activity. Tolerates that well. Chest xray report shows no abnormality, sputum is normal [place]. Pneumonia ruled out. Does continue to require oxygen, 96% at 2 liters. Afebrile. WBC 9.4. CRP improved slightly to 14.5. INR has increased to 3.96. Will continue to give nebs as she does see more air exchange with these but cautiously watch her heart rate. Is currently on Cardizem 240 mg CD for this. Will attempt to wean off oxygen today. Ambulate in halls. Hold Coumadin. Continue IV Levaquin and Solu Medrol. Repeat labs in am. 05-07-2018 Patient awoke this am, feeling more short of breath, wheezing. Was given Xopenex treatment that did help. Heart rate continues to increase with any activity or with breathing treatments. Did ambulate in the carias yesterday but got very short of breath, oxygen sats dropped to 87%. Was placed back on oxygen after. Has been afebrile. WBC now 10.2. CRP has improved to 6.0. INR 3.67. Will continue to give nebs, Levaquin and Steroids. Continue to ambulate as able. If able to wean off oxygen and tolerates activity, will potentially discharge home tomorrow.
[2018-05-08] MEDS: methylPREDNISolone Sodium Succinate 125 MG/2 ML SDV IVPUSH SCH (07:46)
[2018-05-08] MEDS: Ipratropium 0.02% 0.5 MG/2.5 ML Neb Soln NEB SCH ×4 (07:46→19:33)
[2018-05-08] MEDS: Levalbuterol HCl 1.25 MG/3 ML Neb NEB SCH ×4 (07:46→19:33)
[2018-05-08] MEDS: Diltiazem 120 MG Cap.CD PO SCH (07:47)
[2018-05-08] MEDS: Furosemide 20 MG Tab PO SCH (07:48)
[2018-05-08] MEDS: Levofloxacin/Dextrose 5%-Water 500 MG in Premix Bag 1 BAG IV SCH (07:54)
[2018-05-08] MEDS ORDERED: Diltiazem 120 MG Cap.CD PO ONE (08:21)
[2018-05-08] MEDS: Warfarin 5 MG Tab PO SCH (11:32)
--- NOTE | 2018-05-08 16:12 | PCM.PN ---
- General Info Date of Service: 05/08/18 Admission Dx/Problem (Free Text): CAP Functional Status: Reports: Pain Controlled, Tolerating Diet. Denies: Ambulating - Review of Systems General: Reports: Weakness, Fatigue. Denies: Fever HEENT: Reports: Sinus Congestion, Rhinitis Pulmonary: Reports: Shortness of Breath, Cough, Wheezing Cardiovascular: Reports: Edema. Denies: Chest Pain, Lightheadedness Gastrointestinal: Denies: Abdominal Pain, Nausea, Vomiting Genitourinary: Reports: No Symptoms Musculoskeletal: Reports: No Symptoms Skin: Reports: No Symptoms Neurological: Reports: Weakness. Denies: Dizziness - Patient Data Vitals - Most Recent: Last Vital Signs Temp 98.6 F 05/08/18 12:00 Pulse 150 H 05/08/18 08:43 Resp 20 05/08/18 12:00 BP 133/98 H 05/08/18 12:00 Pulse Ox 96 05/08/18 12:00 Weight - Most Recent: 248 lb 9.6 oz Lab Results Last 24 Hours: Laboratory Results - last 24 hr 05/07/18 05/08/18 05/08/18 Range/Units 20:53 06:43 07:00 PT 25.3 H (9.7-12.3) SEC INR 2.61 H (0.92-1.18) POC Glucose 259 H (75-105) mg/dl C-Reactive Protein 2.7 H (0.2-0.8) mg/dL 05/08/18 Range/Units 07:50 PT (9.7-12.3) SEC INR (0.92-1.18) POC Glucose 197 H (75-105) mg/dl C-Reactive Protein (0.2-0.8) mg/dL Noel Results Last 24 Hours: Microbiology 05/05/18 01:20 Aerobic Blood Culture - Preliminary Blood - Venous NO GROWTH AFTER 3 DAYS Anaerobic Blood Culture - Preliminary NO GROWTH AFTER 3 DAYS 05/05/18 01:30 Aerobic Blood Culture - Preliminary Blood - Venous - Lab Draw NO GROWTH AFTER 3 DAYS Anaerobic Blood Culture - Preliminary NO GROWTH AFTER 3 DAYS Med Orders - Current: Current Medications Acetaminophen (Tylenol) 650 mg PO Q4H PRN PRN Reason: Pain (Mild 1-3)/fever Last Admin: 05/07/18 08:11 Dose: 650 mg Diltiazem HCl (Cardizem Cd) 360 mg PO DAILY [facility] Furosemide (Lasix) 10 mg PO DAILY [facility] Last Admin: 05/08/18 07:48 Dose: 10 mg Guaifenesin (Robitussin) 100 mg PO Q6H PRN PRN Reason: Cough Last Admin: 05/06/18 23:14 Dose: 100 mg Levofloxacin/Dextrose 500 mg/ (Premix) 100 mls @ 100 mls/hr IV Q24H [facility] Last Admin: 05/08/18 07:54 Dose: 100 mls/hr Ibuprofen (Motrin) 400 mg PO Q6H PRN PRN Reason: Pain (mild 1-3) Ipratropium [place] (Atrovent) 0.5 mg NEB QID [facility] Last Admin: 05/08/18 11:32 Dose: 0.5 mg Levalbuterol HCl (Xopenex) 1.25 mg NEB QID [facility] Last Admin: 05/08/18 11:32 Dose: 1.25 mg Warfarin Sodium (Coumadin) 5 mg PO DAILY@1200 [facility] Last Admin: 05/08/18 11:32 Dose: 5 mg Discontinued Medications Diltiazem HCl (Cardizem Cd) 120 mg PO ONETIME ONE Stop: 05/05/18 02:43 Last Admin: 05/05/18 03:01 Dose: 120 mg Diltiazem HCl (Cardizem Cd) 240 mg PO DAILY [facility] Last Admin: 05/08/18 07:47 Dose: 240 mg Diltiazem HCl (Cardizem Cd) 120 mg PO ONETIME ONE Stop: 05/05/18 19:39 Last Admin: 05/05/18 19:58 Dose: 120 mg Diltiazem HCl (Cardizem Cd) 120 mg PO ONETIME ONE Stop: 05/08/18 08:22 Last Admin: 05/08/18 08:43 Dose: 120 mg Levofloxacin/Dextrose 500 mg/ (Premix) 100 mls @ 100 mls/hr IV Q24H [facility] Last Admin: 05/05/18 03:01 Dose: 100 mls/hr Sodium Chloride (Normal Saline) 1,000 mls @ 125 mls/hr IV ASDIRECTED [facility] Last Admin: 05/06/18 04:04 Dose: 125 mls/hr Levalbuterol HCl (Xopenex) 1.25 mg NEB Q4H PRN PRN Reason: Shortness of Breath Levalbuterol HCl (Xopenex) 1.25 mg INH Q4H PRN PRN Reason: Shortness of Breath Last Admin: 05/05/18 08:53 Dose: 1.25 mg Methylprednisolone Sodium Succinate (Solu-Medrol) 62.5 mg IVPUSH Q12H [facility] Last Admin: 05/05/18 03:01 Dose: 62.5 mg Methylprednisolone Sodium Succinate (Solu-Medrol) 62.5 mg IVPUSH BID [facility] Last Admin: 05/08/18 07:46 Dose: 62.5 mg - Exam Quality Assessment: Supplemental Oxygen (patient was able to be weaned off her oxygen yesterday but asked for it during the night as she states she feels better when she is trying to sleep with it on. ) General: Alert, Oriented HEENT: Mucous Membr. Moist/[place] Neck: Supple Lungs: Decreased Breath Sounds, Wheezing Cardiovascular: Tachycardia GI/Abdominal Exam: Normal Bowel Sounds, Soft Extremities: Normal Inspection, Pedal Edema (trace) Skin: Warm, Dry Neurological: No New Focal Deficit - Problem List & Annotations (1) Atrial fibrillation with RVR SNOMED Code(s): 456416636090442 Code(s): I48.91 - UNSPECIFIED ATRIAL FIBRILLATION Status: Acute Priority : High Current Visit: Yes (2) COPD exacerbation SNOMED Code(s): 565949300 Code(s): J44.1 - CHRONIC OBSTRUCTIVE PULMONARY DISEASE W (ACUTE) EXACERBATION Status: Acute Priority: High Current Visit: Yes (3) Community acquired pneumonia SNOMED Code(s): 574615537 Code(s): J18.9 - PNEUMONIA, UNSPECIFIED ORGANISM Status: Ruled-out Current Visit: Yes Qualifiers: Laterality: unspecified laterality Qualified Code(s): J18.9 - Pneumonia, unspecified organism (4) Acute bronchitis SNOMED Code(s): 61194120 Code(s): J20.9 - ACUTE BRONCHITIS, UNSPECIFIED Status: Acute Priority: High Current Visit: Yes - Problem List Review Problem List Initiated/Reviewed/Updated: Yes - My Orders Last 24 Hours: My Active Orders 05/09/18 08:00 Diltiazem [Cardizem CD] 360 mg PO DAILY - Assessment Assessment:: COPD Exacerbation Acute Bronchitis Atrial Fib with RVR Ruled out pneumonia - Plan Plan:: 05-06-2018 Patient starting to feel somewhat better. Still gets short of breath with exertion. Does feel better after Xopenex treatments but her heart rate increases with this and activity. Tolerates that well. Chest xray report shows no abnormality, sputum is normal [place]. Pneumonia ruled out. Does continue to require oxygen, 96% at 2 liters. Afebrile. WBC 9.4. CRP improved slightly to 14.5. INR has increased to 3.96. Will continue to give nebs as she does see more air exchange with these but cautiously watch her heart rate. Is currently on Cardizem 240 mg CD for this. Will attempt to wean off oxygen today. Ambulate in halls. Hold Coumadin. Continue IV Levaquin and Solu Medrol. Repeat labs in am. 05-07-2018 Patient awoke this am, feeling more short of breath, wheezing. Was given Xopenex treatment that did help. Heart rate continues to increase with any activity or with breathing treatments. Did ambulate in the carias yesterday but got very short of breath, oxygen sats dropped to 87%. Was placed back on oxygen after. Has been afebrile. WBC now 10.2. CRP has improved to 6.0. INR 3.67. Will continue to give nebs, Levaquin and Steroids. Continue to ambulate as able. If able to wean off oxygen and tolerates activity, will potentially discharge home tomorrow. 05-08-2018 Patient continues to complain of shortness of breath. Was up and ambulating last evening and did tolerate better. Oxygen sats were 92% on room air. Tolerate a shower. Does still have notable tachycardia, worsens with nebs, steroids and activity. Did request oxygen during the night, states she does better as she feels worse with lying down, especially if lying on right side. Oxygen was started on 1 liter. CRP is improving, down to 2.7 today. Will stop the IV steroids. Increase Cardizem to 360 mg daily. Will obtain sleep study after discharge due to increased shortness of breath during the night and history of snoring. Does need to continue ambulating as she is complaining of more weakness today. Probable discharge home tomorrow.
[2018-05-09] MEDS ORDERED: Diltiazem 120 MG Cap.CD PO SCH (08:00)
[2018-05-09] MEDS: Levalbuterol HCl 1.25 MG/3 ML Neb NEB SCH ×2 (08:07→11:44)
[2018-05-09] MEDS: Furosemide 20 MG Tab PO SCH (08:08)
[2018-05-09] MEDS: Ipratropium 0.02% 0.5 MG/2.5 ML Neb Soln NEB SCH ×2 (08:09→11:44)
[2018-05-09] MEDS: Levofloxacin/Dextrose 5%-Water 500 MG in Premix Bag 1 BAG IV SCH (08:10)
[2018-05-09 08:11] VITALS: BP 122/79
[2018-05-09] MEDS: Warfarin 5 MG Tab PO SCH (11:44)
--- NOTE | 2018-05-10 20:53 | PCM.DCSUM1 ---
Discharge Summary - Hospital Course Free Text/Narrative:: Patient is a 58 yo female who presents to the ED via private vehicle with concerns of not feeling well. She states symptoms started on Friday and she thought she was coming down with a cold. She admits she has been using her inhaler (Xopenex) frequently but recently ran out of it. Has had increased sinus congestion, shortness of breath, fever and body aches. had noted that her chest was tight, was wheezing. Was exposed to to URI from her [id number] last week. Does continue to smoke 1/2 a pack of cigarettes per day. Does have a history of atrial fib, rapid at times. Currently on Coumadin. Chest xray in ER concerning for infiltrate. WBC stable at 9.2, CRP 10.9. Creatinine 1.2. Admitted and started on Solu Medrol, Rocephin and Zithromax. Xopenex nebs held due to ventricular rate in the 120s to 130s. Diagnosis: Stroke: No Modified [place] Scale: No Symptoms at All Modified [place] Scale Score: 0 - Discharge Data Discharge Date: 05/09/18 Discharge Disposition: Home, Self-Care 01 Condition: Fair - Discharge Diagnosis/Problem(s) (1) Atrial fibrillation with RVR SNOMED Code(s): 165750383906520 ICD Code: I48.91 - UNSPECIFIED ATRIAL FIBRILLATION Status: Acute Priority : High (2) COPD exacerbation SNOMED Code(s): 277781465 ICD Code: J44.1 - CHRONIC OBSTRUCTIVE PULMONARY DISEASE W (ACUTE) EXACERBATION Status: Acute Priority: High (3) Community acquired pneumonia SNOMED Code(s): 471056700 ICD Code: J18.9 - PNEUMONIA, UNSPECIFIED ORGANISM Status: Ruled-out Qualifiers: Laterality: unspecified laterality Qualified Code(s): J18.9 - Pneumonia, unspecified organism (4) Acute bronchitis SNOMED Code(s): 70740637 ICD Code: J20.9 - ACUTE BRONCHITIS, UNSPECIFIED Status: Acute Priority: High - Patient Summary/Data Complications: none Hospital Course: Patient overall improved by discharge today. Has had ongoing issues with decreased breath sounds, diffuse wheezing and tachycardia. Lung sounds have vastly improved today. Only fine expiratory wheezing noted. Chest xray was normal, sputum normal, ruled out pneumonia. Treated for COPD Exacerbation with Levaquin and steroids. Patient does have atrial fib with RVR with activity, neb treatments and does feel that the steroids have also caused more issues with that. We did increase her Cardizem to 360 mg daily, stopped the Solu Medrol and heart rate at rest will stay now around 110. Patient tolerates it well. She has has stable WBC. CRP did decrease from 16.5 to 2.7 now today. INR was high at 3.96 so Coumadin was held much of stay. Restarted on her Coumadin yesterday, INR stable at 2.65. Will continue with half dose as she will be discharged home on levaquin. She is up and ambulating, sats remain above 92%. She does feel short of breath more at night, does better with 1 liter of oxygen. Will proceed with sleep study upon discharge. - Patient Instructions Diet: Usual Diet as Tolerated Activity: As Tolerated - Discharge Plan *PRESCRIPTION DRUG MONITORING PROGRAM REVIEWED*: No *COPY OF PRESCRIPTION DRUG MONITORING REPORT IN PATIENT DEVAN: No Prescriptions/Med Rec: Diltiazem [Cardizem CD] 360 mg PO DAILY #30 cap.cd Levalbuterol HCl [Xopenex] 1.25 mg NEB QID #1 box Levofloxacin [Levaquin] 500 mg PO DAILY #7 tablet predniSONE [Prednisone] 20 mg PO DAILY #5 tablet Warfarin [Coumadin] 2.5 mg PO DAILY #30 tab Home Medications: Home Meds Furosemide [Lasix] 10 mg PO DAILY 05/05/18 [History] Levalbuterol Tartrate [Xopenex Hfa] 1 inh INH Q4H PRN 05/05/18 [History] Diltiazem [Cardizem CD] 360 mg PO DAILY #30 cap.cd 05/09/18 [Rx] Levalbuterol HCl [Xopenex] 1.25 mg NEB QID #1 box 05/09/18 [Rx] Levofloxacin [Levaquin] 500 mg PO DAILY #7 tablet 05/09/18 [Rx] Warfarin [Coumadin] 2.5 mg PO DAILY #30 tab 05/09/18 [Rx] predniSONE [Prednisone] 20 mg PO DAILY #5 tablet 05/09/18 [Rx] Patient Handouts: Chronic Obstructive Pulmonary Disease Exacerbation, Atrial Fibrillation, Community-Acquired Pneumonia, Adult Forms: ED Department Discharge Referrals: Carloz Alcocer MD [Primary Care Provider] - (Follow up with Dr. Alcocer on May 18) - Discharge Summary/Plan Comment DC Time >30 min.: No Discharge Summary/Plan Comment: Patient will be discharged home levaquin 500 mg daily for 7 days Prednisone 20 mg daily for 5 days Xopenex nebs every 4 hours as needed Cardizem [address] Alcocer in one week - General Info Date of Service: 05/09/18 Admission Dx/Problem (Free Text: CAP Functional Status: Reports: Pain Controlled, Tolerating Diet, Ambulating - Review of Systems General: Reports: Weakness HEENT: Reports: Sinus Congestion Pulmonary: Reports: Shortness of Breath, Cough, Wheezing Cardiovascular: Denies: Chest Pain, Edema, Lightheadedness Gastrointestinal: Denies: Abdominal Pain, Nausea, Vomiting Genitourinary: Reports: No Symptoms Musculoskeletal: Reports: No Symptoms Skin: Reports: No Symptoms Neurological: Reports: No Symptoms Psychiatric: Reports: No Symptoms - Patient Data Vitals - Most Recent: Last Vital Signs Temp 97.9 F 05/09/18 08:00 Pulse 112 H 05/09/18 08:08 Resp 18 05/09/18 08:00 BP 122/79 05/09/18 08:08 Pulse Ox 91 L 05/09/18 08:00 Weight - Most Recent: 248 lb 9.6 oz FELICIA Results - Last 24 hrs: Microbiology 05/05/18 01:20 Aerobic Blood Culture - Final Blood - Venous NO GROWTH AFTER 5 DAYS Anaerobic Blood Culture - Final NO GROWTH AFTER 5 DAYS 05/05/18 01:30 Aerobic Blood Culture - Final Blood - Venous - Lab Draw NO GROWTH AFTER 5 DAYS Anaerobic Blood Culture - Final NO GROWTH AFTER 5 DAYS Med Orders - Current: Current Medications Discontinued Medications Acetaminophen (Tylenol) 650 mg PO Q4H PRN PRN Reason: Pain (Mild 1-3)/fever Last Admin: 05/07/18 08:11 Dose: 650 mg Diltiazem HCl (Cardizem Cd) 120 mg PO ONETIME ONE Stop: 05/05/18 02:43 Last Admin: 05/05/18 03:01 Dose: 120 mg Diltiazem HCl (Cardizem Cd) 240 mg PO DAILY RIA Last Admin: 05/08/18 07:47 Dose: 240 mg Diltiazem HCl (Cardizem Cd) 120 mg PO ONETIME ONE Stop: 05/05/18 19:39 Last Admin: 05/05/18 19:58 Dose: 120 mg Diltiazem HCl (Cardizem Cd) 120 mg PO ONETIME ONE Stop: 05/08/18 08:22 Last Admin: 05/08/18 08:43 Dose: 120 mg Diltiazem HCl (Cardizem Cd) 360 mg PO DAILY [facility] Last Admin: 05/09/18 08:08 Dose: 360 mg Furosemide (Lasix) 10 mg PO DAILY [facility] Last Admin: 05/09/18 08:08 Dose: 10 mg Guaifenesin (Robitussin) 100 mg PO Q6H PRN PRN Reason: Cough Last Admin: 05/06/18 23:14 Dose: 100 mg Levofloxacin/Dextrose 500 mg/ (Premix) 100 mls @ 100 mls/hr IV Q24H [facility] Last Admin: 05/05/18 03:01 Dose: 100 mls/hr Sodium Chloride (Normal Saline) 1,000 mls @ 125 mls/hr IV ASDIRECTED [facility] Last Admin: 05/06/18 04:04 Dose: 125 mls/hr Levofloxacin/Dextrose 500 mg/ (Premix) 100 mls @ 100 mls/hr IV Q24H [facility] Last Admin: 05/09/18 08:10 Dose: 100 mls/hr Ibuprofen (Motrin) 400 mg PO Q6H PRN PRN Reason: Pain (mild 1-3) Ipratropium Singer (Atrovent) 0.5 mg NEB QID [facility] Last Admin: 05/09/18 11:44 Dose: 0.5 mg Levalbuterol HCl (Xopenex) 1.25 mg NEB Q4H PRN PRN Reason: Shortness of Breath Levalbuterol HCl (Xopenex) 1.25 mg INH Q4H PRN PRN Reason: Shortness of Breath Last Admin: 05/05/18 08:53 Dose: 1.25 mg Levalbuterol HCl (Xopenex) 1.25 mg NEB QID [facility] Last Admin: 05/09/18 11:44 Dose: 1.25 mg Methylprednisolone Sodium Succinate (Solu-Medrol) 62.5 mg IVPUSH Q12H [facility] Last Admin: 05/05/18 03:01 Dose: 62.5 mg Methylprednisolone Sodium Succinate (Solu-Medrol) 62.5 mg IVPUSH BID [facility] Last Admin: 05/08/18 07:46 Dose: 62.5 mg Warfarin Sodium (Coumadin) 5 mg PO DAILY@1200 [facility] Last Admin: 05/09/18 11:44 Dose: 5 mg - Exam General: Reports: Alert, Oriented HEENT: Reports: Mucous Membr. Moist/[place] Neck: Reports: Supple Lungs: Reports: Normal Respiratory Effort, Decreased Breath Sounds, Wheezing Cardiovascular: Reports: Irregular Rhythm GI/Abdominal Exam: Normal Bowel Sounds, Soft, Non-Tender Extremities: Normal Inspection, No Pedal Edema Skin: Reports: Warm, Dry Neurological: Reports: No New Focal Deficit
== END 2018-05-09 12:35 | disposition home or self-care (01) | DRG 191 ==
LOC: CC.ED 00:58 → CC.MS 02:10 → UNDOADMIN 02:10 → CC.MS 02:21
PROVIDERS: ADMIT Physician Assistant Medical; ATTEND Family Medicine
DX: J44.1 Chronic obstructive pulmonary disease with (acute) exacerbation (principal); Z68.41 Body mass index [BMI] 40.0-44.9, adult; J44.0 Chronic obstructive pulmonary disease with (acute) lower respiratory infection; I48.91 Unspecified atrial fibrillation; F17.210 Nicotine dependence, cigarettes, uncomplicated; T48.6X5A Adverse effect of antiasthmatics, initial encounter; J20.9 Acute bronchitis, unspecified; E78.00 Pure hypercholesterolemia, unspecified; M19.90 Unspecified osteoarthritis, unspecified site; M06.9 Rheumatoid arthritis, unspecified; F32.9 Major depressive disorder, single episode, unspecified; F41.0 Panic disorder [episodic paroxysmal anxiety]; R73.03 Prediabetes; Z96.642 Presence of left artificial hip joint; Z79.01 Long term (current) use of anticoagulants; Z79.52 Long term (current) use of systemic steroids; Z79.899 Other long term (current) drug therapy; Z88.5 Allergy status to narcotic agent; Z88.8 Allergy status to other drugs, medicaments and biological substances; Z88.0 Allergy status to penicillin; Z90.49 Acquired absence of other specified parts of digestive tract; Z90.710 Acquired absence of both cervix and uterus; E66.01 Morbid (severe) obesity due to excess calories
CPT/HCPCS: 36415; 71046; 80048; 81001; 82550; 82962; 84484; 85025; 85610; 86140; 87040; 87070; 87205; 87804; 93005; 94640; 94761; 99285; A9270-GY; J1956; J2930; J7030; J7612-GY

== ENCOUNTER 2020-02-15 14:15 | Inpatient (IN) | payer MEDICAID ==
[2020-02-15] MEDS ORDERED: Sodium Chloride 0.9% 10 ML Syringe FLUSH PRN (16:03)
[2020-02-15] MEDS ORDERED: Polyethylene Glycol 3350 Powder 17 GM Packet PO PRN (16:03)
[2020-02-15] MEDS ORDERED: Ibuprofen 200 MG Tab PO PRN (16:03)
[2020-02-15] MEDS ORDERED: Enoxaparin 40 MG/0.4 ML Syringe SUBCUT SCH (16:15)
[2020-02-15] MEDS ORDERED: Albuterol 8 GM Inhaler INH PRN (16:37)
[2020-02-15] MEDS: Clindamycin Phosphate in D5W 300 MG in Premix Bag 1 BAG IV SCH ×4 (16:39→22:12)
[2020-02-15] MEDS: Acetaminophen 325 MG Tab PO PRN (16:41)
[2020-02-15] MEDS: Metoprolol Succinate 25 MG Tab.ER PO SCH (19:35)
[2020-02-16] MEDS: Clindamycin Phosphate in D5W 300 MG in Premix Bag 1 BAG IV SCH ×8 (04:29→22:39)
[2020-02-16 07:33] LABS: CHLORIDE,CL 104 mEq/L (98-106); SODIUM,NA 139 mEq/L (136-145)
[2020-02-16] MEDS ORDERED: DILTIAZEM HCL 360 MG PO SCH (08:00)
[2020-02-16] MEDS: Furosemide 20 MG Tab PO SCH (08:38)
[2020-02-16] MEDS: Diltiazem 180 MG Cap.CD PO SCH (08:38)
[2020-02-16] MEDS: Warfarin 5 MG Tab PO SCH (08:38)
[2020-02-16] MEDS ORDERED: FLU Vacc QS2020-21 36MOS UP/PF 60 MCG/0.5 ML Syringe IM ONE (09:15)
[2020-02-16] MEDS: Acetaminophen 325 MG Tab PO PRN (12:27)
--- NOTE | 2020-02-16 12:46 | PCM.PN ---
- General Info Date of Service: 02/16/20 Admission Dx/Problem (Free Text): Cellulitis of LLE Functional Status: Reports: Pain Controlled, Tolerating Diet, Ambulating - Review of Systems General: Denies: Fever, Weakness, Fatigue, Malaise HEENT: Reports: No Symptoms Pulmonary: Reports: Shortness of Breath (states "due to being fat"). Denies: Cough Cardiovascular: Denies: Chest Pain, Edema, Lightheadedness Gastrointestinal: Denies: Abdominal Pain, Nausea, Vomiting Genitourinary: Reports: No Symptoms Musculoskeletal: Reports: Leg Pain Skin: Reports: Other (redness, swelling to left leg) Neurological: Reports: No Symptoms (4) Psychiatric: Reports: No Symptoms - Patient Data Vitals - Most Recent: Last Vital Signs Temp 97.8 F 02/16/20 11:34 Pulse 95 02/16/20 11:34 Resp 20 02/16/20 11:34 BP 110/66 02/16/20 11:34 Pulse Ox 94 L 02/16/20 11:34 Weight - Most Recent: 315 lb 9.6 oz I&O - Last 24 Hours: Intake & Output 02/15/20 02/16/20 02/16/20 22:59 06:59 14:59 Intake Total 100 50 Balance 100 50 Lab Results Last 24 Hours: Laboratory Results - last 24 hr 02/15/20 02/16/20 02/16/20 Range/Units 14:25 07:00 07:00 WBC 7.0 (5.0-10.0) 10^3/uL RBC 3.66 L (4.00-5.50) 10^6/uL Hgb 10.3 L (12.0-16.0) g/dL Hct 33.5 L (37.0-47.0) % MCV 91.5 (82.0-94.0) fL MCH 28.1 (27.0-32.0) pg MCHC 30.7 L (33.0-38.0) g/dL RDW Coeff of Dalia 16.9 H (11.0-15.0) % Plt Count 576 H (150-400) 10^3/uL Neut % (Auto) 76.0 (35-85) % Lymph % (Auto) 13.9 (10-55) % [place] % (Auto) 7.7 (0-16) % Eos % (Auto) 2.0 (0-5) % Baso % (Auto) 0.4 (0-3) % Neut # (Auto) 5.34 (1.80-7.00) 10^3/uL Lymph # (Auto) 0.98 L (1.00-4.80) 10^3/uL [place] # (Auto) 0.54 (0.00-0.80) 10^3/uL Eos # (Auto) 0.14 (0.00-0.45) 10^3/uL Baso # (Auto) 0.03 10^3/uL PT (9.7-12.3) SEC INR (0.92-1.18) Sodium 139 (136-145) mEq/L Potassium 4.1 (3.5-5.0) mEq/L Chloride 104 (98-106) mEq/L Carbon Dioxide 32 (21-32) mmol/L BUN 13 (7-18) mg/dL Creatinine 0.8 (0.6-1.0) mg/dL Est Cr Clr Drug Dosing 65.61 mL/min Estimated GFR (MDRD) > 60 (>=60) mL/min Glucose 164 H (75-99) mg/dL Calcium 8.5 (8.4-10.1) mg/dL C-Reactive Protein 18.0 H (0.2-0.8) mg/dL SARS CoV-2 RNA Rapid KAM Negative (NEGATIVE) 02/16/20 Range/Units 07:00 WBC (5.0-10.0) 10^3/uL RBC (4.00-5.50) 10^6/uL Hgb (12.0-16.0) g/dL Hct (37.0-47.0) % MCV (82.0-94.0) fL MCH (27.0-32.0) pg MCHC (33.0-38.0) g/dL RDW Coeff of Dalia (11.0-15.0) % Plt Count (150-400) 10^3/uL Neut % (Auto) (35-85) % Lymph % (Auto) (10-55) % [place] % (Auto) (0-16) % Eos % (Auto) (0-5) % Baso % (Auto) (0-3) % Neut # (Auto) (1.80-7.00) 10^3/uL Lymph # (Auto) (1.00-4.80) 10^3/uL [place] # (Auto) (0.00-0.80) 10^3/uL Eos # (Auto) (0.00-0.45) 10^3/uL Baso # (Auto) 10^3/uL PT 30.4 H (9.7-12.3) SEC INR 3.04 H (0.92-1.18) Sodium (136-145) mEq/L Potassium (3.5-5.0) mEq/L Chloride (98-106) mEq/L Carbon Dioxide (21-32) mmol/L BUN (7-18) mg/dL Creatinine (0.6-1.0) mg/dL Est Cr Clr Drug Dosing mL/min Estimated GFR (MDRD) (>=60) mL/min Glucose (75-99) mg/dL Calcium (8.4-10.1) mg/dL C-Reactive Protein (0.2-0.8) mg/dL SARS CoV-2 RNA Rapid KAM (NEGATIVE) Med Orders - Current: Current Medications Acetaminophen (Tylenol) 650 mg PO Q4H PRN PRN Reason: Pain (Mild 1-3)/fever Last Admin: 02/16/20 12:27 Dose: 650 mg Documented by: Albuterol (Ventolin Hfa) 1 - 2 gm INH ASDIRECTED PRN PRN Reason: Shortness of Breath Diltiazem HCl (Cardizem Cd) 360 mg PO DAILY [facility] Last Admin: 02/16/20 08:38 Dose: 360 mg Documented by: Furosemide (Lasix) 10 mg PO DAILY [facility] Last Admin: 02/16/20 08:38 Dose: 10 mg Documented by: Clindamycin Phosphate 300 mg/ (Premix) 50 mls @ 100 mls/hr IV Q6H [facility] Last Admin: 02/16/20 10:13 Dose: 100 mls/hr Documented by: Ibuprofen (Motrin) 400 mg PO Q6H PRN PRN Reason: Pain (mild 1-3) Metoprolol Succinate (Toprol Xl) 50 mg PO BEDTIME [facility] Last Admin: 02/15/20 19:35 Dose: 50 mg Documented by: Polyethylene Glycol (Miralax) 17 gm PO DAILY PRN PRN Reason: Constipation Sodium Chloride (Saline Flush) 10 ml FLUSH ASDIRECTED PRN PRN Reason: Keep Vein Open Warfarin Sodium (Coumadin) 2.5 mg PO SuTuThSa@0800 RIA Warfarin Sodium (Coumadin) 5 mg PO MoWeFr@0800 [facility] Last Admin: 02/16/20 08:38 Dose: 5 mg Documented by: Discontinued Medications Influenza Virus Vaccine (Pharmacy To Dose - Influenza Vaccine) 1 each IM ONETIM E ONE Stop: 02/16/20 08:47 Influenza Virus Vaccine (Afluria Quad (3yr Up)) 60 mcg IM .ONCE ONE Stop: 02/16/20 09:16 Last Admin: 02/16/20 09:24 Dose: 60 mcg Documented by: - Exam General: Alert, Oriented HEENT: Mucous Membr. Moist/[place] Neck: Supple Lungs: Decreased Breath Sounds Cardiovascular: Irregular Rhythm GI/Abdominal Exam: Normal Bowel Sounds, Soft, Non-Tender Extremities: Leg Pain, Increased Warmth, Redness, Other (patient has left lower extremity redness, warmth. Tender. Blister areas noted to the left medial ankle region. ) Neurological: No New Focal Deficit Sepsis Event Note - Evaluation Sepsis Screening Result: No Definite Risk - Focused Exam Vital Signs: Vital Signs Temp Pulse Resp BP Pulse Ox 02/16/20 11:34 97.8 F 95 20 110/66 94 L 02/16/20 08:00 97.7 F 120 H 20 129/75 94 L 02/16/20 04:00 97.6 F 108 H 20 130/66 94 L - Problem List & Annotations (1) Cellulitis SNOMED Code(s): 235602139 Code(s): L03.90 - CELLULITIS, UNSPECIFIED Status: Acute Priority: High Current Visit: Yes Qualifiers: Site of cellulitis: extremity Site of cellulitis of extremity: lower extremity Laterality: left Qualified Code(s): L03.116 - Cellulitis of left lower limb - Problem List Review Problem List Initiated/Reviewed/Updated: Yes - Assessment Assessment:: LLE Cellulitis - Plan Plan:: Patient is feeling better today. Feels heat to left leg is less intense. Per marking to left leg, redness is somewhat improved. Continues to red, edematous and has blisters to left medial ankle region. Tender. WBC today remains stable 7.0. CRP 18. INR is 3.04. Blood pressure stable. Afebrile Will continue with IV Cleocin. Elevate leg on pillows. Ambulate. Recheck labs in am.
[2020-02-16] MEDS: Metoprolol Succinate 25 MG Tab.ER PO SCH (19:53)
[2020-02-17] MEDS: Clindamycin Phosphate in D5W 300 MG in Premix Bag 1 BAG IV SCH ×8 (04:44→22:31)
[2020-02-17 07:24] LABS: CHLORIDE,CL 105 mEq/L (98-106); SODIUM,NA 141 mEq/L (136-145)
[2020-02-17] MEDS: Furosemide 20 MG Tab PO SCH (07:55)
[2020-02-17] MEDS: Diltiazem 180 MG Cap.CD PO SCH (07:55)
[2020-02-17] MEDS: Acetaminophen 325 MG Tab PO PRN (07:57)
[2020-02-17] MEDS: Warfarin 2.5 MG Tab PO SCH (07:58)
--- NOTE | 2020-02-17 10:35 | PCM.PN ---
- General Info Date of Service: 02/17/20 Admission Dx/Problem (Free Text): Cellulitis of LLE Functional Status: Reports: Pain Controlled, Tolerating Diet, Ambulating - Review of Systems General: Reports: Malaise. Denies: Fever, Weakness HEENT: Reports: No Symptoms Pulmonary: Reports: Shortness of Breath (with exertion). Denies: Cough Cardiovascular: Reports: Edema. Denies: Chest Pain, Lightheadedness Gastrointestinal: Reports: Diarrhea. Denies: Abdominal Pain, Nausea, Vomiting Genitourinary: Reports: No Symptoms Musculoskeletal: Reports: Leg Pain Skin: Reports: Other (redness, warmth, achy left leg) Neurological: Reports: No Symptoms Psychiatric: Reports: No Symptoms - Patient Data Vitals - Most Recent: Last Vital Signs Temp 98.1 F 02/17/20 07:53 Pulse 100 02/17/20 07:53 Resp 18 02/17/20 07:53 BP 113/66 02/17/20 07:53 Pulse Ox 94 L 02/17/20 07:53 Weight - Most Recent: 315 lb 9.6 oz I&O - Last 24 Hours: Intake & Output 02/16/20 02/17/20 02/17/20 22:59 06:59 14:59 Intake Total 50 100 Balance 50 100 Lab Results Last 24 Hours: Laboratory Results - last 24 hr 02/17/20 02/17/20 02/17/20 Range/Units 07:00 07:00 07:00 WBC 6.2 (5.0-10.0) 10^3/uL RBC 3.57 L (4.00-5.50) 10^6/uL Hgb 10.1 L (12.0-16.0) g/dL Hct 32.9 L (37.0-47.0) % MCV 92.2 (82.0-94.0) fL MCH 28.3 (27.0-32.0) pg MCHC 30.7 L (33.0-38.0) g/dL RDW Coeff of Dalia 16.9 H (11.0-15.0) % Plt Count 596 H (150-400) 10^3/uL Neut % (Auto) 68.4 (35-85) % Lymph % (Auto) 20.3 (10-55) % [place] % (Auto) 8.9 (0-16) % Eos % (Auto) 2.1 (0-5) % Baso % (Auto) 0.3 (0-3) % Neut # (Auto) 4.22 (1.80-7.00) 10^3/uL Lymph # (Auto) 1.25 (1.00-4.80) 10^3/uL [place] # (Auto) 0.55 (0.00-0.80) 10^3/uL Eos # (Auto) 0.13 (0.00-0.45) 10^3/uL Baso # (Auto) 0.02 10^3/uL PT 42.9 H (9.7-12.3) SEC INR 4.31 H* (0.92-1.18) Sodium 141 (136-145) mEq/L Potassium 3.8 (3.5-5.0) mEq/L Chloride 105 (98-106) mEq/L Carbon Dioxide 32 (21-32) mmol/L BUN 12 (7-18) mg/dL Creatinine 0.8 (0.6-1.0) mg/dL Est Cr Clr Drug Dosing 65.61 mL/min Estimated GFR (MDRD) > 60 (>=60) mL/min Glucose 150 H (75-99) mg/dL Hemoglobin A1c (4.8-5.6) % Calcium 8.5 (8.4-10.1) mg/dL C-Reactive Protein 16.7 H (0.2-0.8) mg/dL 02/17/20 Range/Units 07:00 WBC (5.0-10.0) 10^3/uL RBC (4.00-5.50) 10^6/uL Hgb (12.0-16.0) g/dL Hct (37.0-47.0) % MCV (82.0-94.0) fL MCH (27.0-32.0) pg MCHC (33.0-38.0) g/dL RDW Coeff of [place] (11.0-15.0) % Plt Count (150-400) 10^3/uL Neut % (Auto) (35-85) % Lymph % (Auto) (10-55) % [place] % (Auto) (0-16) % Eos % (Auto) (0-5) % Baso % (Auto) (0-3) % Neut # (Auto) (1.80-7.00) 10^3/uL Lymph # (Auto) (1.00-4.80) 10^3/uL [place] # (Auto) (0.00-0.80) 10^3/uL Eos # (Auto) (0.00-0.45) 10^3/uL Baso # (Auto) 10^3/uL PT (9.7-12.3) SEC INR (0.92-1.18) Sodium (136-145) mEq/L Potassium (3.5-5.0) mEq/L Chloride (98-106) mEq/L Carbon Dioxide (21-32) mmol/L BUN (7-18) mg/dL Creatinine (0.6-1.0) mg/dL Est Cr Clr Drug Dosing mL/min Estimated GFR (MDRD) (>=60) mL/min Glucose (75-99) mg/dL Hemoglobin A1c 7.0 H (4.8-5.6) % Calcium (8.4-10.1) mg/dL C-Reactive Protein (0.2-0.8) mg/dL Med Orders - Current: Current Medications Acetaminophen (Tylenol) 650 mg PO Q4H PRN PRN Reason: Pain (Mild 1-3)/fever Last Admin: 02/17/20 07:57 Dose: 650 mg Documented by: Albuterol (Ventolin Hfa) 1 - 2 gm INH ASDIRECTED PRN PRN Reason: Shortness of Breath Diltiazem HCl (Cardizem Cd) 360 mg PO DAILY [facility] Last Admin: 02/17/20 07:55 Dose: 360 mg Documented by: Furosemide (Lasix) 10 mg PO DAILY [facility] Last Admin: 02/17/20 07:55 Dose: 10 mg Documented by: Clindamycin Phosphate 300 mg/ (Premix) 50 mls @ 100 mls/hr IV Q6H [facility] Last Admin: 02/17/20 10:11 Dose: 100 mls/hr Documented by: Ibuprofen (Motrin) 400 mg PO Q6H PRN PRN Reason: Pain (mild 1-3) Metoprolol Succinate (Toprol Xl) 50 mg PO BEDTIME [facility] Last Admin: 02/16/20 19:53 Dose: 50 mg Documented by: Polyethylene Glycol (Miralax) 17 gm PO DAILY PRN PRN Reason: Constipation Sodium Chloride (Saline Flush) 10 ml FLUSH ASDIRECTED PRN PRN Reason: Keep Vein Open Warfarin Sodium (Coumadin) 2.5 mg PO SuTuThSa@0800 [facility] Last Admin: 02/17/20 07:58 Dose: Not Given Documented by: Warfarin Sodium (Coumadin) 5 mg PO MoWeFr@0800 [facility] Last Admin: 02/16/20 08:38 Dose: 5 mg Documented by: Discontinued Medications Influenza Virus Vaccine (Pharmacy To Dose - Influenza Vaccine) 1 each IM ONETIME ONE Stop: 02/16/20 08:47 Influenza Virus Vaccine (Afluria Quad (3yr Up)) 60 mcg IM .ONCE ONE Stop: 02/16/20 09:16 Last Admin: 02/16/20 09:24 Dose: 60 mcg Documented by: - Exam General: Alert, Oriented HEENT: Mucous Membr. Moist/[place] Neck: Supple Lungs: Clear to Auscultation, Normal Respiratory Effort Cardiovascular: Irregular Rhythm GI/Abdominal Exam: Normal Bowel Sounds, Soft, Non-Tender Extremities: Pedal Edema (edema is improved to left leg today, redness improved. Blisters intact to medial ankle and lower leg. Less tender than yesterday.), Leg Pain, Increased Warmth, Redness Wound/Incisions: Erythema Improving Neurological: No New Focal Deficit Sepsis Event Note - Evaluation Sepsis Screening Result: No Definite Risk - Focused Exam Vital Signs: Vital Signs Temp Pulse Resp BP Pulse Ox 02/17/20 07:53 98.1 F 100 18 113/66 94 L 02/17/20 04:00 98.3 F 90 18 111/66 93 L 02/16/20 23:34 98 F 115 H 20 122/69 96 - Problem List & Annotations (1) Cellulitis SNOMED Code(s): 320610440 Code(s): L03.90 - CELLULITIS, UNSPECIFIED Status: Acute Priority: High Current Visit: Yes Qualifiers: Site of cellulitis: extremity Site of cellulitis of extremity: lower extremity Laterality: left Qualified Code(s): L03.116 - Cellulitis of left lower limb - Problem List Review Problem List Initiated/Reviewed/Updated: Yes - Assessment Assessment:: LLE Cellulitis - Plan Plan:: Patient is feeling better today. Feels heat to left leg is less intense. Per marking to left leg, redness is somewhat improved. Continues to red, edematous and has blisters to left medial ankle region. Tender. WBC today remains stable 7.0. CRP 18. INR is 3.04. Blood pressure stable. Afebrile Will continue with IV Cleocin. Elevate leg on pillows. Ambulate. Recheck labs in am. 02-17-2020 Patient is noting less discomfort to left leg. Redness is improved, less tender to touch. Blisters intact to lower leg and ankle. Edema much improved from elevation. Has had 2 loose stools since last evening, will monitor due to Cleocin use and collect stools as needed to rule out c diff. INR is high today at 4.31, will hold Coumadin today. WBC remains normal, CRP is improving, today at 16.7. Tachycardic at times, blood pressure stable, afebrile. Did check A1C today as glucose has been high, elevated at 7.0. Will notify PCP as will need to be followed. Continue Cleocin at this point unless loose stools persist, then may need to consider switching but is making good progress with this antibiotic. Follow labs. Daily INR and monitor.
[2020-02-17] MEDS: Metoprolol Succinate 25 MG Tab.ER PO SCH (19:12)
[2020-02-18] MEDS: Clindamycin Phosphate in D5W 300 MG in Premix Bag 1 BAG IV SCH ×8 (05:07→22:48)
[2020-02-18 07:25] LABS: CHLORIDE,CL 104 mEq/L (98-106); SODIUM,NA 143 mEq/L (136-145)
[2020-02-18] MEDS: Furosemide 20 MG Tab PO SCH (07:28)
[2020-02-18] MEDS: Diltiazem 180 MG Cap.CD PO SCH (07:28)
[2020-02-18] MEDS: Acetaminophen 325 MG Tab PO PRN ×2 (07:29→18:40)
--- NOTE | 2020-02-18 08:42 | PCM.PN ---
- General Info Date of Service: 02/18/20 Admission Dx/Problem (Free Text): Cellulitis of LLE Subjective Update: Daisy reports she is feels she is improving. Tenderness and redness to LLE has improved greatly. Edema has improved as well. Area of outlined redness is receding. She does however have newly formed blisters to medial aspect of ankle which are now weeping. She has been elevating and wrapping leg. PT was consulted for wound cares, however did not see patient yesterday as it was Thanksgiving. She has been having some loose stools. Has already had 2 this morning. Reports abdominal cramping, but no pain. She has been afebrile since admit. Functional Status: Reports: Pain Controlled, Tolerating Diet, Ambulating, Urinating. Denies: New Symptoms - Review of Systems General: Denies: Fever Pulmonary: Denies: Shortness of Breath, Cough Cardiovascular: Reports: Dyspnea on Exertion (at baseline), Edema (2+ pitting BLE) Gastrointestinal: Reports: Diarrhea. Denies: Abdominal Pain, Nausea, Vomiting Genitourinary: Reports: No Symptoms Musculoskeletal: Reports: Leg Pain Neurological: Reports: No Symptoms Psychiatric: Reports: No Symptoms - Patient Data Vitals - Most Recent: Last Vital Signs Temp 98.0 F 02/18/20 08:00 Pulse 116 H 02/18/20 08:00 Resp 20 02/18/20 08:00 BP 125/78 02/18/20 08:00 Pulse Ox 93 L 02/18/20 08:00 Weight - Most Recent: 315 lb 9.6 oz I&O - Last 24 Hours: Intake & Output 02/17/20 02/18/20 02/18/20 22:59 06:59 14:59 Intake Total 50 50 Balance 50 50 Lab Results Last 24 Hours: Laboratory Results - last 24 hr 02/18/20 02/18/20 02/18/20 Range/Units 07:02 07:02 07:02 WBC 5.7 (5.0-10.0) 10^3/uL RBC 3.70 L (4.00-5.50) 10^6/uL Hgb 10.3 L (12.0-16.0) g/dL Hct 34.1 L (37.0-47.0) % MCV 92.2 (82.0-94.0) fL MCH 27.8 (27.0-32.0) pg MCHC 30.2 L (33.0-38.0) g/dL RDW Coeff of Dalia 17.1 H (11.0-15.0) % Plt Count 582 H (150-400) 10^3/uL Neut % (Auto) 66.0 (35-85) % Lymph % (Auto) 21.9 (10-55) % Andrew % (Auto) 8.9 (0-16) % Eos % (Auto) 2.8 (0-5) % Baso % (Auto) 0.4 (0-3) % Neut # (Auto) 3.76 (1.80-7.00) 10^3/uL Lymph # (Auto) 1.25 (1.00-4.80) 10^3/uL Andrew # (Auto) 0.51 (0.00-0.80) 10^3/uL Eos # (Auto) 0.16 (0.00-0.45) 10^3/uL Baso # (Auto) 0.02 10^3/uL PT 35.3 H (9.7-12.3) SEC INR 3.54 H (0.92-1.18) Sodium 143 (136-145) mEq/L Potassium 3.8 (3.5-5.0) mEq/L Chloride 104 (98-106) mEq/L Carbon Dioxide 30 (21-32) mmol/L BUN 11 (7-18) mg/dL Creatinine 0.7 (0.6-1.0) mg/dL Est Cr Clr Drug Dosing 74.98 mL/min Estimated GFR (MDRD) > 60 (>=60) mL/min Glucose 149 H (75-99) mg/dL Calcium 8.6 (8.4-10.1) mg/dL C-Reactive Protein 15.3 H (0.2-0.8) mg/dL Med Orders - Current: Current Medications Acetaminophen (Tylenol) 650 mg PO Q4H PRN PRN Reason: Pain (Mild 1-3)/fever Last Admin: 02/18/20 07:29 Dose: 650 mg Documented by: Albuterol (Ventolin Hfa) 1 - 2 gm INH ASDIRECTED PRN PRN Reason: Shortness of Breath Diltiazem HCl (Cardizem Cd) 360 mg PO DAILY [facility] Last Admin: 02/18/20 07:28 Dose: 360 mg Documented by: Furosemide (Lasix) 10 mg PO DAILY [facility] Last Admin: 02/18/20 07:28 Dose: 10 mg Documented by: Clindamycin Phosphate 300 mg/ (Premix) 50 mls @ 100 mls/hr IV Q6H [facility] Last Admin: 02/18/20 05:07 Dose: 100 mls/hr Documented by: Ibuprofen (Motrin) 400 mg PO Q6H PRN PRN Reason: Pain (mild 1-3) Metoprolol Succinate (Toprol Xl) 50 mg PO BEDTIME [facility] Last Admin: 02/17/20 19:12 Dose: 50 mg Documented by: Polyethylene Glycol (Miralax) 17 gm PO DAILY PRN PRN Reason: Constipation Sodium Chloride (Saline Flush) 10 ml FLUSH ASDIRECTED PRN PRN Reason: Keep Vein Open Warfarin Sodium (Coumadin) 2.5 mg PO SuTuThSa@0800 [facility] Last Admin: 02/17/20 07:58 Dose: Not Given Documented by: Warfarin Sodium (Coumadin) 5 mg PO MoWeFr@0800 [facility] Last Admin: 02/16/20 08:38 Dose: 5 mg Documented by: Discontinued Medications Influenza Virus Vaccine (Pharmacy To Dose - Influenza Vaccine) 1 each IM ONETIME ONE Stop: 02/16/20 08:47 Influenza Virus Vaccine (Afluria Quad 2020- (3yr Up)) 60 mcg IM .ONCE ONE Stop: 02/16/20 09:16 Last Admin: 02/16/20 09:24 Dose: 60 mcg Documented by: - Exam Quality Assessment: DVT Prophylaxis General: Alert, Oriented, No Acute Distress Lungs: Clear to Auscultation, Normal Respiratory Effort Cardiovascular: Regular Rate, Regular Rhythm GI/Abdominal Exam: Normal Bowel Sounds, Soft, Non-Tender Extremities: Normal Capillary Refill, Other (erytehma and calor improving to LLE, weeping blister to medial aspect of left ankle, edema improving, area less tender) Peripheral Pulses: 2+: Dorsalis Pedis (L), Dorsalis Pedis (R) Wound/Incisions: Erythema Improving Neurological: No New Focal Deficit Psy/Mental Status: Alert, Normal Affect, Normal Mood Sepsis Event Note - Evaluation Sepsis Screening Result: No Definite Risk - Focused Exam Vital Signs: Vital Signs Temp Pulse Resp BP Pulse Ox 02/18/20 08:00 98.0 F 116 H 20 125/78 93 L 02/18/20 04:00 97.4 F 102 H 20 122/57 L 95 02/18/20 00:00 98.7 F 106 H 20 122/82 95 - Problem List & Annotations (1) Cellulitis SNOMED Code(s): 376528941 Code(s): L03.90 - CELLULITIS, UNSPECIFIED Status: Acute Priority: High Current Visit: Yes Qualifiers: Site of cellulitis: extremity Site of cellulitis of extremity: lower extremity Laterality: left Qualified Code(s): L03.116 - Cellulitis of left lower limb - Problem List Review Problem List Initiated/Reviewed/Updated: Yes - My Orders Last 24 Hours: My Active Orders 02/17/20 08:00 Warfarin [Coumadin] 2.5 mg PO SuTuThSa@0800 02/18/20 08:40 C DIFFICILE BY DNA [RM] Routine 02/18/20 08:41 Isolation [COMM] Stat - Assessment Assessment:: LLE Cellulitis - Plan Plan:: Redness, tenderness, and edema much improved since admit. Labs improving. WBC has remained stable, 5.7. CRP trending down, 15.3. INR supratherapeutic. Hold Coumadin today. Will get stool for Cdiff and switch antibiotic if needed. Switch diet to diabetic diet. PT to see patient today for wound cares. Continue to follow labs. Anticipate discharge home tomorrow with oral antibiotics.
[2020-02-18] MEDS: Warfarin 5 MG Tab PO SCH (12:30)
[2020-02-18] MEDS: Metoprolol Succinate 25 MG Tab.ER PO SCH (19:36)
[2020-02-19] MEDS: Clindamycin Phosphate in D5W 300 MG in Premix Bag 1 BAG IV SCH ×4 (03:50→10:36)
[2020-02-19] MEDS: Furosemide 20 MG Tab PO SCH (08:06)
[2020-02-19] MEDS: Acetaminophen 325 MG Tab PO PRN (08:07)
[2020-02-19] MEDS: Diltiazem 180 MG Cap.CD PO SCH (08:07)
--- NOTE | 2020-02-19 10:52 | PCM.DCSUM1 ---
Discharge Summary - Hospital Course Free Text/Narrative:: Daisy is a 60 year old female who presented to clinic to see Abbi for left leg swelling and redness. Had noted a fever 6 days prior that lasted about 48 hours. She then noted redness, warmth and pain to her left leg that has progressively gotten worse over the last 4 days. The am of the visit, legs were weak. Was unable to get up off her stairs and did call the ambulance for a lift assist and then presented to clinic for visit. Left leg swollen, red and warm. Initial WBC 7.0, CRP 18. Electrolyes normal. Admitted to inpatient and started on IV Cleocin. Diagnosis: Stroke: No Modified Stuart Scale: No Symptoms at All Modified Stuart Scale Score: 0 - Discharge Data Discharge Date: 02/19/20 Discharge Disposition: Home, W Home Health Agency 06 Condition: Fair - Referral to Home Health Date of Face to Face Encounter: 02/19/20 Reason for Homebound Status: unable to drive due to deconditioning and weakness Primary Care Physician: Abbi Hubbard NP Skilled Need: Nursing to monitor blood pressure and pulse. Evaluate wound. PT and nursing to change dressing to leg as needed. Needs INR in one week. Physical therapy and occupational therapy for strengthening due to deconditioning and wound care as well as ADLs/safety. - Discharge Diagnosis/Problem(s) (1) Cellulitis SNOMED Code(s): 569067424 ICD Code: L03.90 - CELLULITIS, UNSPECIFIED Status: Acute Priority: High Qualifiers: Site of cellulitis: extremity Site of cellulitis of extremity: lower extremity Laterality: left Qualified Code(s): L03.116 - Cellulitis of left lower limb - Patient Summary/Data Complications: none Consults: Consultations 02/15/20 16:03 PT Evaluation and Treatment [CONS] Routine Hospital Course: Patient doing well. Has had significant improvement of edema of left leg. Redness and warmth much improved. Does have several fluid filled blisters to left medial ankle and foot, now oozing serous fluid. Have kept leg elevated and wrapped. Did develop diarrhea, c diff was done but was negative. Has been afebrile. WBC has remained normal. CRP has improved over stay. INR did become supratherapeutic. Coumadin held for 2 days, dose reduced to 2.5 mg daily. Will have home health once home, have them monitor wound and recheck INR in one week. - Patient Instructions Diet: Diabetic Diet Activity: As Tolerated - Discharge Plan *PRESCRIPTION DRUG MONITORING PROGRAM REVIEWED*: No *COPY OF PRESCRIPTION DRUG MONITORING REPORT IN PATIENT DEVAN: No Prescriptions/Med Rec: clindamycin HCL [Cleocin] 300 mg PO Q6H #28 cap Warfarin [Coumadin] 2.5 mg PO DAILY #30 tab Home Medications: Home Meds Acetaminophen [Tylenol] 1 - 2 tab PO Q4HR PRN 02/15/20 [History] Furosemide [Lasix] 10 mg PO DAILY 02/15/20 [History] Levalbuterol Tartrate [Xopenex HFA] 1 - 2 puff INH ASDIRECTED PRN 02/15/20 [History] Metoprolol Succinate [Toprol Xl] 50 mg PO BEDTIME 02/15/20 [History] dilTIAZem HCL [Diltiazem 24Hr ER (Cd)] 360 mg PO DAILY 02/15/20 [History] Warfarin [Coumadin] 2.5 mg PO DAILY #30 tab 02/19/20 [Rx] clindamycin HCL [Cleocin] 300 mg PO Q6H #28 cap 02/19/20 [Rx] Referrals: Carloz Alcocer MD [ED Physician] - (Follow up with Dr. Alcocer in 10 days ) - Discharge Summary/Plan Comment DC Time >30 min.: No - General Info Date of Service: 02/20/20 Admission Dx/Problem (Free Text: Cellulitis of LLE Functional Status: Reports: Pain Controlled, Tolerating Diet, Ambulating - Review of Systems General: Reports: Weakness, Fatigue, Malaise. Denies: Fever HEENT: Reports: No Symptoms Pulmonary: Reports: Shortness of Breath (admits chronic for her due to deconditioning) Cardiovascular: Reports: Edema Gastrointestinal: Reports: No Symptoms Genitourinary: Reports: No Symptoms Musculoskeletal: Reports: Leg Pain Skin: Reports: Other (infection to left leg) Neurological: Reports: No Symptoms - Patient Data Vitals - Most Recent: Last Vital Signs Temp 97.9 F 02/19/20 09:13 Pulse 110 H 02/19/20 09:13 Resp 20 02/19/20 09:13 BP 120/73 02/19/20 09:13 Pulse Ox 94 L 02/19/20 09:13 Weight - Most Recent: 315 lb 9.6 oz I&O - Last 24 hours: Intake & Output 02/18/20 02/19/20 02/19/20 22:59 06:59 14:59 Intake Total 50 100 Balance 50 100 Lab Results - Last 24 hrs: Laboratory Results - last 24 hr 02/19/20 Range/Units 09:32 PT 22.6 H (9.7-12.3) SEC INR 2.26 H (0.92-1.18) FELICIA Results - Last 24 hrs: Microbiology 02/18/20 08:40 C. difficile DNA Amplification - Final Stool / Feces NEGATIVE CDIFF BY DNA REFERENCE RANGE: NEGATIVE Med Orders - Current: Current Medications Acetaminophen (Tylenol) 650 mg PO Q4H PRN PRN Reason: Pain (Mild 1-3)/fever Last Admin: 02/19/20 08:07 Dose: 650 mg Documented by: Albuterol (Ventolin Hfa) 1 - 2 gm INH ASDIRECTED PRN PRN Reason: Shortness of Breath Diltiazem HCl (Cardizem Cd) 360 mg PO DAILY [facility] Last Admin: 02/19/20 08:07 Dose: 360 mg Documented by: Furosemide (Lasix) 10 mg PO DAILY [facility] Last Admin: 02/19/20 08:06 Dose: 10 mg Documented by: Clindamycin Phosphate 300 mg/ (Premix) 50 mls @ 100 mls/hr IV Q6H [facility] Last Admin: 02/19/20 10:36 Dose: 100 mls/hr Documented by: Ibuprofen (Motrin) 400 mg PO Q6H PRN PRN Reason: Pain (mild 1-3) Metoprolol Succinate (Toprol Xl) 50 mg PO BEDTIME [facility] Last Admin: 02/18/20 19:36 Dose: 50 mg Documented by: Polyethylene Glycol (Miralax) 17 gm PO DAILY PRN PRN Reason: Constipation Sodium Chloride (Saline Flush) 10 ml FLUSH ASDIRECTED PRN PRN Reason: Keep Vein Open Warfarin Sodium (Coumadin) 2.5 mg PO SuTuThSa@0800 [facility] Last Admin: 02/17/20 07:58 Dose: Not Given Documented by: Warfarin Sodium (Coumadin) 5 mg PO MoWeFr@0800 [facility] Last Admin: 02/18/20 12:30 Dose: Not Given Documented by: Discontinued Medications Influenza Virus Vaccine (Pharmacy To Dose - Influenza Vaccine) 1 each IM ONETIME ONE Stop: 02/16/20 08:47 Influenza Virus Vaccine (Afluria Quad 2019- (3yr Up)) 60 mcg IM .ONCE ONE Stop: 02/16/20 09:16 Last Admin: 02/16/20 09:24 Dose: 60 mcg Documented by: - Exam General: Reports: Alert, Oriented HEENT: Reports: Mucous Membr. Moist/Section Neck: Reports: Supple Lungs: Reports: Clear to Auscultation, Normal Respiratory Effort Cardiovascular: Reports: Regular Rate, Regular Rhythm GI/Abdominal Exam: Normal Bowel Sounds, Soft, Non-Tender Extremities: Normal Inspection, Other (redness, warmth and tenderness is improved to left leg) Wound/Incisions: Reports: Erythema Improving Psy/Mental Status: Reports: Alert
[2020-02-19] MEDS: Warfarin 2.5 MG Tab PO SCH (11:37)
[2020-02-19 16:31] VITALS: BP 119/69; PULSE 108
== END 2020-02-19 13:45 | disposition home health service (06) | DRG 603 ==
LOC: CC.FCMC 14:15 → CC.MS 14:30 → UNDOADMIN 14:30 → CC.MS 16:03
PROVIDERS: ADMIT Nurse Practitioner Family; ATTEND Family Medicine
DX: L03.116 Cellulitis of left lower limb (principal); I48.0 Paroxysmal atrial fibrillation; Z98.890 Other specified postprocedural states; Z90.710 Acquired absence of both cervix and uterus; M17.10 Unilateral primary osteoarthritis, unspecified knee; Z20.828 Contact with and (suspected) exposure to other viral communicable diseases
CPT/HCPCS: 36415; 80048; 83036; 85025; 85610; 86140; 87493; 90686; 97161-GP; A9270-GY; G0008; J3490; U0002